=== PATIENT | female | born 1940 | race Caucasian/White ===

== ENCOUNTER 2017-09-10 15:07 | Outpatient (CLI) | payer MEDICARE, BC ==
[2017-09-10 14:44] LABS: BASOPHILS % (AUTO) 0.7 %; EOSINOPHILS # (AUTO) 0.2 10^3/uL (0.0-0.7); EOSINOPHILS % (AUTO) 2.7 %; HCT - HEMATOCRIT 38.3 % (37.0-47.0); LYMPHOCYTES # (AUTO) 1.8 10^3/uL (1.5-3.5); LYMPHOCYTES % (AUTO) 32.1 %; MEAN CORPUSCULAR HEMOGLOBIN 29.3 pg (27.0-31.0); MEAN CORPUSCULAR VOLUME 86.3 fL (81.0-99.0); MEAN PLATELET VOLUME 7.4 fL (7.9-10.8); MONOCYTES # (AUTO) 0.5 10^3/uL (0.0-1.0); MONOCYTES % (AUTO) 8.7 %; NEUTROPHILS # (AUTO) 3.2 10^3/uL (1.5-6.6); NEUTROPHILS % (AUTO) 55.8 %; RED BLOOD COUNT 4.44 10^6/uL (4.20-5.40); RED CELL DISTRIBUTION WIDTH 13.8 % (12.0-15.0); UNCORRECTED WHITE BLOOD COUNT 5.7 x10^3/uL; WHITE BLOOD COUNT 5.7 x10^3/uL (4.8-10.8)
[2017-09-10 15:31] LABS: ALBUMIN/GLOBULIN RATIO 1.4 (1.0-2.2); BILIRUBIN,TOTAL 0.9 mg/dL (0.2-1.0); BUN - BLOOD UREA NITROGEN 11 mg/dL (6-20); CALCIUM 9.3 mg/dL (8.5-10.3); CARBON DIOXIDE - CO2 27 mmol/L (21-32); CHLORIDE 95 mmol/L (101-111); CHOL/HDL RATIO 2.9 (<4.4); CHOLESTEROL 237 mg/dL; CREATININE 0.6 mg/dL (0.4-1.0); GFR - MDRD 97 (>89); GLUCOSE 90 mg/dL (70-100); HDL CHOLESTEROL 83 mg/dL; POTASSIUM 4.2 mmol/L (3.5-5.0); SODIUM 132 mmol/L (135-145); TOTAL PROTEIN 7.1 g/dL (6.7-8.2); TRIGLYCERIDES 38 mg/dL
[2017-09-10 15:42] LABS: BILIRUBIN,URINE NEGATIVE (NEGATIVE)
[2017-09-10 15:54] LABS: LDL CHOLESTEROL,DIRECT 149 mg/dL
[2017-09-10 15:59] LABS: UR CULTURE IF IND NOT INDICATED; WBC,URINE 0-3 /HPF (0-5)
== END 2017-09-10 15:08 | disposition home or self-care (01) ==
LOC: LAB 15:07
PROVIDERS: ATTEND Family Medicine
DX: I10 Essential (primary) hypertension (principal); R42 Dizziness and giddiness
CPT/HCPCS: 36415; 80053; 80061; 81001; 85025; 87086

== ENCOUNTER 2018-01-01 15:26 | Outpatient (CLI) | payer MEDICARE, BC ==
--- NOTE | 2018-01-01 23:05 | XRAY Report ---
EXAM: CERVICAL SPINE RADIOGRAPHY EXAM DATE: 01/01/2018 03:52 PM. HISTORY: Headache. Neck pain. Dizziness. COMPARISONS: CT 09/16/2016. TECHNIQUE: 7 views including bilateral obliques, flexion, and extension. FINDINGS: Alignment: No scoliosis. 2 mm C2-C3 anterolisthesis with flexion. Bones: The cervical vertebral bodies and posterior elements are well visualized from the skull base t hrough C7-T1. No fractures or bone lesions. Disks: Advanced disk space narrowing, C3 to C7, with bilateral C5-C6 and left C6-C7 foraminal narrowi ng. Facets: Multilevel facet arthropathy. Soft Tissues: Normal. No prevertebral soft tissue swelling. The visualized lung apices are clear. IMPRESSION: 1. 2 mm C2-C3 anterolisthesis with flexion. 2. Advanced degenerative disk disease, C3 to C7. [facility] Referring Provider Line: [phone] SITE ID: [id number]
== END 2018-01-01 15:27 | disposition home or self-care (01) ==
LOC: DI 15:26
PROVIDERS: ATTEND Family Medicine
DX: M50.31 Other cervical disc degeneration, high cervical region (principal); M43.12 Spondylolisthesis, cervical region
CPT/HCPCS: 72052

== ENCOUNTER 2018-02-18 10:48 | Outpatient (CLI) | payer MEDICARE, BC ==
[2018-02-18 11:44] LABS: BASOPHILS % (AUTO) 0.5 %; EOSINOPHILS # (AUTO) 0.2 10^3/uL (0.0-0.7); EOSINOPHILS % (AUTO) 3.8 %; HGB - HEMOGLOBIN 13.1 g/dL (12.0-16.0); LYMPHOCYTES # (AUTO) 1.7 10^3/uL (1.5-3.5); LYMPHOCYTES % (AUTO) 32.3 %; MEAN CORPUSCULAR HEMOGLOBIN 29.8 pg (27.0-31.0); MEAN CORPUSCULAR HGB CONC 33.8 g/dL (32.0-36.0); MEAN CORPUSCULAR VOLUME 88.3 fL (81.0-99.0); MEAN PLATELET VOLUME 7.4 fL (7.9-10.8); MONOCYTES # (AUTO) 0.5 10^3/uL (0.0-1.0); MONOCYTES % (AUTO) 9.7 %; NEUTROPHILS # (AUTO) 2.7 10^3/uL (1.5-6.6); NEUTROPHILS % (AUTO) 53.7 %; PLT - PLATELET COUNT 226 10^3/uL (130-450); RED BLOOD COUNT 4.39 10^6/uL (4.20-5.40); RED CELL DISTRIBUTION WIDTH 13.5 % (12.0-15.0); WHITE BLOOD COUNT 5.1 x10^3/uL (4.8-10.8)
[2018-02-18] MEDS ORDERED: REGADENOSON 0.4 MG/5 ML SYRINGE IVP ONE (12:04)
[2018-02-18 12:14] LABS: ALBUMIN/GLOBULIN RATIO 1.4 (1.0-2.2); ALKALINE PHOSPHATASE 67 IU/L (42-121); ALT ALANINE AMINOTRANSFERASE 28 IU/L (10-60); AST ASPARTATE AMINOTRANSFERASE 27 IU/L (10-42); BILIRUBIN,TOTAL 0.6 mg/dL (0.2-1.0); BUN - BLOOD UREA NITROGEN 15 mg/dL (6-20); CALCIUM 9.2 mg/dL (8.5-10.3); CARBON DIOXIDE - CO2 27 mmol/L (21-32); CHLORIDE 99 mmol/L (101-111); CHOL/HDL RATIO 2.8 (<4.4); CHOLESTEROL 203 mg/dL; CREATININE 0.4 mg/dL (0.4-1.0); GFR - MDRD 155 (>89); GLUCOSE 90 mg/dL (70-100); HDL CHOLESTEROL 73 mg/dL; LDL CHOLESTEROL,CALCULATED 115 mg/dL; LDL/HDL RATIO 1.6 (<4.4); SODIUM 133 mmol/L (135-145); TOTAL PROTEIN 6.8 g/dL (6.7-8.2); VLDL CHOLESTEROL 15 mg/dL
--- NOTE | 2018-02-18 15:44 | CARDIAC PROCEDURE NOTE ---
DATE OF SERVICE: 02/18/2018 Physician: ROGELIO Hood DATE OF SERVICE: 02/18/2018. PRIMARY CARE PROVIDER: Dr. Cristiane Mary. PROCEDURE: Pharmacologic cardiac stress test. PROCEDURE SYMPTOMS: Chest pain. CARDIAC RISK FACTORS: Age, hypertension, hyperlipidemia. PREVIOUS CARDIAC PROCEDURES: MPS. CLINICAL HISTORY: A 78-year-old female without known coronary artery disease. She is highly anxious. There were no medications held. INITIAL RESTING VITAL SIGNS: Blood pressure 166/90, heart rate 95, height 67 inches, weight 120 pounds. PROCEDURE AND FINDINGS: The patient identity and date verified. Consent signed. Pharmacologic stress testing was performed with Lexiscan at a dose of 0.4 mg over 10 seconds. The heart rate increased to 121 beats per minute from the infusion. Blood pressure response maria isabel to 184/76. The patient developed infusion-related symptoms, which include headache and required caffeine to resolve. The resting ECG demonstrated normal sinus rhythm with no ST or T-wave changes. Nondiagnostic Q-waves were present. Maximum ST segment depression with stress was 0. There was no ectopy. FINAL IMPRESSIONS: 1. Negative electrocardiogram for ischemia in the setting of vasodilator stress. 2. Nondiagnostic stress test for angina. 3. Good quality procedure. 4. Await myocardial perfusion report. TD: 02/18/2018 15:44
--- NOTE | 2018-02-19 08:16 | Nuclear Medicine Report ---
EXAM: SINGLE-ISOTOPE PHARMACOLOGICAL STRESS TEST WITH REGADENOSON. SINGLE-ISOTOPE AND ONE-DAY REST/STRESS M YOCARDIAL PERFUSION SCANS WITH TOMOGRAPHIC IMAGING, QUANTITATIVE ANALYSIS, WALL MOTION ANALYSIS AND C ALCULATION OF EJECTION FRACTION. EXAM DATE: 02/18/2018 04:52 PM. CLINICAL HISTORY: CHEST PAIN. COMPARISON: None available. TECHNIQUE: After the intravenous administration of 9.3 mCi of Tc-99m sestamibi, a rest myocardial perfusion scan was done with tomography. Motion correction was applied when appropriate. After an appropriate delay, pharmacological stress was performed with the infusion of 0.4 mg regadeno son per protocol. According to protocol, 40.7 mCi of Tc-99m sestamibi was injected for stress myocard ial perfusion scan. Motion correction was applied when appropriate. Gated tomographic images were obtained for wall motion analysis and computation of left ventricular e jection fraction. FINDINGS: No convincing fixed or reversible perfusion defects are evident. Wall motion analysis demonstrates no focal wall motion abnormality. The left ventricular end-diastolic volume is 40 cc. The left ventricular end-systolic volume is 3 cc. The left ventricular ejection fraction is calculated to be 92%. IMPRESSION: 1. No scintigraphic findings to indicate myocardial ischemia. Negative for infarct. 2. Left ventricular ejection fraction of >65%. 3. Normal segmental and global wall motion. 4. Normal left ventricular cavity size, no change with stress. [facility] Referring Provider Line: [phone] SITE ID: [id number]
--- NOTE | 2018-02-22 08:35 | XRAY Report ---
TWO VIEW CHEST: 02/18/2018 COMPARISON: Comparison study two view chest 03/30/2015. INDICATION: Centralized chest pain for a year. TECHNIQUE: Two views. FINDINGS: There is persistent right perihilar and bilateral apical infiltrates. Cannot exclude a right hilar or perihilar mass. No pneumothorax or pleural effusion. Mediastinum otherwise unremarkable. IMPRESSION: PERSISTENT RIGHT PERIHILAR OPACITY AND BIAPICAL SUBTLE INFILTRATES ARE UNCHANGED OVER THE COURSE OF ALMOST 3 YEARS. FAVOR THESE TO BE CHRONIC FINDINGS RATHER THAN RECURRENT ONES. A MASS IS NOT EXCLUDED, HOWEVER. RECOMMEND CHEST CT WITH CONTRAST FOR FURTHER EVALUATION. TD: 02/22/2018 08:34 RAPHAEL
[2018-02-22 16:23] VITALS: BP 166/90
== END 2018-02-18 10:49 | disposition home or self-care (01) ==
LOC: DI 10:48
PROVIDERS: ATTEND Family Medicine
DX: R07.9 Chest pain, unspecified (principal); E87.1 Hypo-osmolality and hyponatremia
CPT/HCPCS: 36415; 71046; 78452; 80053; 80061; 83930; 85025; 93017; A9500; J2785; 83721; 93016; 93018

== ENCOUNTER 2018-05-13 08:00 | Outpatient (CLI) | payer MEDICARE, BC | END 2018-05-13 08:01 | disposition home or self-care (01) | LOC: LAB.R 08:00 | PROVIDERS: ATTEND Internal Medicine Pulmonary Disease | DX: A31.9 Mycobacterial infection, unspecified (principal); C54.1 Malignant neoplasm of endometrium; J47.9 Bronchiectasis, uncomplicated; C50.919 Malignant neoplasm of unspecified site of unspecified female breast; M06.9 Rheumatoid arthritis, unspecified ==

== ENCOUNTER 2019-01-21 14:49 | Emergency (ER) | payer MEDICARE, BC ==
[2019-01-21 15:14] LABS: BILIRUBIN,URINE NEGATIVE (NEGATIVE); GLUCOSE, URINE (UA) NEGATIVE (NEGATIVE); KETONES,URINE (UA) NEGATIVE (NEGATIVE); LEUKOCYTE ESTERASE, URINE NEGATIVE (NEGATIVE); NITRITE,URINE NEGATIVE (NEGATIVE); OCCULT BLOOD,URINE NEGATIVE (NEGATIVE); PH,URINE 7.5 PH (5.0-7.5); PROTEIN,URINE NEGATIVE (NEGATIVE); UROBILINOGEN,URINE 0.2 (NORMAL) E.U./dL (NORMAL)
[2019-01-21 15:16] LABS: CLARITY,URINE CLEAR (CLEAR)
[2019-01-21 15:28] LABS: BASOPHILS % (AUTO) 0.1 %; HGB - HEMOGLOBIN 13.5 g/dL (12.0-16.0); LYMPHOCYTES # (AUTO) 1.7 10^3/uL (1.5-3.5); LYMPHOCYTES % (AUTO) 24.8 %; MEAN CORPUSCULAR HEMOGLOBIN 28.6 pg (27.0-31.0); MEAN CORPUSCULAR HGB CONC 33.3 g/dL (32.0-36.0); MEAN CORPUSCULAR VOLUME 85.7 fL (81.0-99.0); MEAN PLATELET VOLUME 7.2 fL (7.9-10.8); MONOCYTES # (AUTO) 0.5 10^3/uL (0.0-1.0); MONOCYTES % (AUTO) 7.2 %; NEUTROPHILS # (AUTO) 4.6 10^3/uL (1.5-6.6); NEUTROPHILS % (AUTO) 67.9 %; PLT - PLATELET COUNT 234 10^3/uL (130-450); RED BLOOD COUNT 4.74 10^6/uL (4.20-5.40); WHITE BLOOD COUNT 6.7 x10^3/uL (4.8-10.8)
[2019-01-21 15:45] LABS: ALBUMIN 4.2 g/dL (3.2-5.5); ALBUMIN/GLOBULIN RATIO 1.4 (1.0-2.2); BILIRUBIN,TOTAL 0.3 mg/dL (0.2-1.0); CALCIUM 9.3 mg/dL (8.5-10.3); CREATININE 0.4 mg/dL (0.4-1.0); TOTAL PROTEIN 7.2 g/dL (6.7-8.2)
--- NOTE | 2019-01-21 16:05 | ED Physician Documentation ---
PD HPI ABD PAIN - Stated complaint Stated Complaint: LOWER AB/R HIP/BACK PX - Chief complaint Chief Complaint: Abd Pain - History obtained from History obtained from: Patient - History of Present Illness Timing - onset: How many months ago (3) Timing - details: Gradual onset Quality: Pain Location: Other (lower abdomen, right > left.) Associated symptoms: Nausea. No: Fever, Vomiting, Dysuria - Additional information Additional information: The patient is a 78-year-old female with history of endometrial cancer, breast cancer, status post left mastectomy, and history of osteosarcoma, status post right above-knee amputation, who presents with lower abdominal pain, right greater than left, radiating to her right hip. The pain started 3 months ago and has been getting gradually worse, particularly over the past 2 days. She reports associated slight nausea. She denies vomiting. She denies fever, diarrhea, or dysuria. She is concerned about the possibility of recurrent cancer. Review of Systems Constitutional: denies: Fever Ears: denies: Tinnitus/ringing Nose: denies: Congestion Throat: denies: Sore throat Cardiac: denies: Chest pain / pressure Respiratory: reports: Cough. denies: Dyspnea GI: reports: Abdominal Pain, Nausea. denies: Vomiting, Diarrhea : denies: Dysuria Skin: denies: Rash Musculoskeletal: reports: Back pain (lower back), Joint pain (right hip) Neurologic: denies: Focal weakness, Numbness, Headache PD PAST MEDICAL HISTORY - Past Medical History Cardiovascular: Hypertension, High cholesterol, Valve disorder Respiratory: Asthma, COPD, Other SILK PRESSER: Breast cancer Psych: Anxiety, Panic attacks, Post traumatic stress disorder Musculoskeletal: Rheumatoid arthritis, Osteopenia, Other Other Past Medical History: Osteosarcoma, Breast cancer, Endometrial Cancer - Past Surgical History Past Surgical History: Yes General: Appendectomy Ortho: Amputation /SILK PRESSER: Hysterectomy - Present Medications Home Medications: Ambulatory Orders Medication Instructions Recorded Confirmed Anastrozole 1 mg ORAL DAILY 02/14/13 07/01/15 Azithromycin 500 mg ORAL DAILY 02/17/15 07/01/15 Acetaminophen with Codeine 07/01/15 07/01/15 [Tylenol with Codeine #4 Tablet] HYDROmorphone [Dilaudid] 2 mg PO Q6H PRN #10 tablet 07/01/15 Verapamil HCl [Verapamil ER] 07/01/15 07/01/15 Cyclobenzaprine [Flexeril] 10 mg PO TID PRN #10 tablet 09/16/16 Polyethylene Glycol 3350 [Miralax] 17 gm PO DAILY PRN #1 bottle 01/21/19 - Allergies Allergies/Adverse Reactions: Allergies Allergy/AdvReac Type Severity Reaction Status Date / Time hydrocodone [Hydrocodone] Allergy Unknown unknown Verified 01/21/19 14:58 oxycodone [Oxycodone] Allergy Unknown unknown Verified 01/21/19 14:58 Penicillins Allergy Unknown unknown Verified 01/21/19 14:58 adhesive Allergy Unknown Verified 01/21/19 14:59 - Social History Does the pt smoke?: No Smoking Status: Never smoker Does the pt drink ETOH?: No Does the pt have substance abuse?: No - Immunizations Immunizations are current?: Yes - POLST Patient has POLST: No PD ED PE NORMAL - Vitals Vital signs reviewed: Yes (systolic hypertension) - General General: Alert and oriented X 3, Well developed/nourished - HEENT HEENT: Atraumatic, Pharynx benign - Neck Neck: No adenopathy, No JVD - Cardiac Cardiac: RRR, No murmur - Respiratory Respiratory: No respiratory distress, Clear bilaterally - Abdomen Abdomen: Normal bowel sounds, Soft, Other (Mild diffuse tenderness to palpation across the lower abdomen, without focal tenderness or rebound.) - Back Back: No CVA TTP, No spinal TTP - Derm Derm: No rash - Extremities Extremities: No edema, No calf tenderness / cord, Other (Right above-knee amputation.) - Neuro Neuro: Alert and oriented X 3, No motor deficit, Normal speech Results - Vitals Vitals: Vital Signs - 24 hr 01/21/19 01/21/19 01/21/19 14:56 17:40 18:15 Temperature 36.7 C Heart Rate 81 68 65 Respiratory 18 18 17 Rate Blood Pressure 167/69 H 165/90 H O2 Saturation 99 99 98 Oxygen O2 Source Room air - Labs Labs: Laboratory Tests 01/21/19 01/21/19 01/21/19 15:05 15:18 15:18 WBC 6.7 RBC 4.74 Hgb 13.5 Hct 40.6 MCV 85.7 MCH 28.6 MCHC 33.3 RDW 14.0 Plt Count 234 MPV 7.2 L Neut # (Auto) 4.6 Lymph # (Auto) 1.7 [place] # (Auto) 0.5 Eos # (Auto) 0.0 Baso # (Auto) 0.0 Absolute Nucleated RBC 0.00 Nucleated RBC % 0.0 Sodium 129 L Potassium 4.6 Chloride 94 L Carbon Dioxide 28 Anion Gap 7.0 BUN 12 Creatinine 0.4 Estimated GFR (MDRD) 155 Glucose 101 H Calcium 9.3 Total Bilirubin 0.3 AST 22 ALT 20 Alkaline Phosphatase 65 Total Protein 7.2 Albumin 4.2 Globulin 3.0 Albumin/Globulin Ratio 1.4 Lipase 31 Urine Color YELLOW Urine Clarity CLEAR Urine pH 7.5 Ur Specific Curtis 1.010 Urine Protein NEGATIVE Urine Glucose (UA) NEGATIVE Urine Ketones NEGATIVE Urine Occult Blood NEGATIVE Urine Nitrite NEGATIVE Urine Bilirubin NEGATIVE Urine Urobilinogen 0.2 (NORMAL) Ur Leukocyte Esterase NEGATIVE Ur Microscopic Review NOT INDICATED Urine Culture Comments NOT INDICATED - Rads (name of study) CT abd/pelvis Radiology: Prelim report reviewed, EMP read contemporaneously, See rad report (1) Increased colonic stool. Possible, constipation without mechanical obstruction. 2) There are multiple low-density lesions within the liver which appear to represent cysts and measure mildly larger in size compared with 02/17/2015. 3) There is a right renal cyst which appears mildly larger in size. 4) There is an incidental 10 mm left lower lobe lung nodule. This is on the upper margin of the exam and uncertain if this finding is new or stable because of its location. In the setting of known malignancy, metastatic disease is not excluded.) PD MEDICAL DECISION MAKING - ED course Complexity details: reviewed old records, reviewed results, re-evaluated patient, considered differential, d/w patient ED course: The patient's abdominal pain is most likely related to her constipation. She also has history of reflex sympathetic dystrophy, which is likely an exacerbating factor, particularly with her back and right hip pain. CT scan of the abdomen and pelvis reveals no evidence of diverticulitis, appendicitis, or bowel obstruction. Her white count is normal at 6.7. Urinalysis is negative. Treatment in the emergency department included administration of morphine 5 mg IM. I discussed with her the results of the workup, outpatient treatment and follow-up, as well as potentially worrisome signs or symptoms that should prompt reevaluation in the emergency department. Departure - Departure Disposition: 01 Home, Self Care Clinical Impression: Reflex sympathetic dystrophy Abdominal pain Qualifiers: Abdominal location: lower abdomen, unspecified Qualified Code(s): R10.30 - Lower abdominal pain, unspecified Constipation Qualifiers: Constipation type: slow transit constipation Qualified Code(s): K59.01 - Slow transit constipation Condition: Stable Instructions: ED Abdominal Pain Unkn Cause, ED Constipation Follow-Up: Cristiane Mary MD [Provider Admit Priv/Credential] - Prescriptions: Polyethylene Glycol 3350 [Miralax] 17 gm PO DAILY PRN #1 bottle PRN Reason: Constipation Comments: You can use MiraLAX daily as prescribed. You can also use milk of magnesia, up to 30 mL daily as a gentle stool softener. If you want to try using CBD oil for your reflex sympathetic dystrophy pain, I see no harm in trying it. Follow-up with your primary physician within 2 weeks. Call to schedule an appointment. Return to the emergency department if you develop increasing pain, fever, persistent vomiting, or otherwise worsening symptoms.
[2019-01-21] MEDS ORDERED: IOVERSOL 320 100 ML VIAL IVP ONE ×2 (16:27→18:48)
--- NOTE | 2019-01-21 17:36 | CT Report ---
Reason: Lower abd. pain Procedure Date: 01/21/2019 Accession Number: [id number] / [id number] Procedure: CT - Abdomen/Pelvis W CPT Code: FULL RESULT: EXAM: CT ABDOMEN AND PELVIS EXAM DATE: 01/21/2019 05:12 PM. CLINICAL HISTORY: Lower abdomen pain. History of osteosarcoma and endometrial cancer COMPARISONS: ABDOMEN/PELVIS W/O 02/17/2015 7:39 PM. TECHNIQUE: Routine helical CT imaging was performed through the abdomen and pelvis. IV contrast: 100 cc Optiray 320 IV. Enteric contrast: No. Reconstructions: Coronal and sagittal. In accordance with CT protocol optimization, one or more of the following dose reduction techniques were utilized for this exam: automated exposure control, adjustment of mA and/or KV based on patient size, or use of iterative reconstructive technique. FINDINGS: Lung Bases: On the superiormost image there is a left lower lobe 10 mm nodule. There is a small focus of consolidation in the anterior left lower lobe. Liver: There are multiple round low-density lesions within the liver. There is a 20 mm lesion in segment 7 which previously measured 14 mm series 3 image 14. There is a segment 2 liver lesion measuring 13 mm which previously measured 10 mm. These lesions measure near water density. Gallbladder/Bile Ducts: Gallbladder appears partially contracted. Spleen: Normal. Pancreas: Normal. Adrenal Glands: Normal. Kidneys: There is an exophytic right renal cortical cyst measuring 46 mm previously 37 mm. No renal mass or hydronephrosis. Peritoneal Cavity/Bowel: There is increased colonic stool in the right colon. Small bowel is normal in caliber. No lymphadenopathy or mass. No abscess or free air. Pelvic Organs: Urinary bladder is empty. Uterus not visualized. Vasculature: There is moderate calcification of the aorta without aneurysm. Bones: There is asymmetric muscular atrophy of the right lower extremity. There is amputation of the right lower extremity at the upper femur diaphysis. No abnormal soft tissue gas collection. Other: None. IMPRESSION: 1. Increased colonic stool. Possible constipation without mechanical obstruction. 2. There are multiple low-density lesions within the liver which appear to represent cysts and measure mildly larger in size compared with 02/17/2015. 3. There is a right renal cyst which appears mildly larger in size. 4. There is an incidental 10 mm left lower lobe lung nodule. This is on the upper margin of the exam and uncertain if this finding is new or stable because of its location. In the setting of a known malignancy, metastatic disease is not excluded. [facility]
[2019-01-21] MEDS ORDERED: MORPHINE 2 MG/ML SYRINGE IVP STA (17:47)
[2019-01-21 18:35] VITALS: BP 140/69
== END 2019-01-21 18:35 | disposition home or self-care (01) ==
LOC: ED 14:49
DX: G90.50 Complex regional pain syndrome I, unspecified (principal); R10.30 Lower abdominal pain, unspecified; K59.01 Slow transit constipation; K76.9 Liver disease, unspecified; N28.1 Cyst of kidney, acquired; R91.1 Solitary pulmonary nodule; I10 Essential (primary) hypertension; E78.00 Pure hypercholesterolemia, unspecified; Z89.611 Acquired absence of right leg above knee; Z90.710 Acquired absence of both cervix and uterus; Z85.3 Personal history of malignant neoplasm of breast; Z85.89 Personal history of malignant neoplasm of other organs and systems; Z90.10 Acquired absence of unspecified breast and nipple; Z85.830 Personal history of malignant neoplasm of bone
CPT/HCPCS: 36415; 74177; 80053; 81003; 83690; 85025; 96374; 99283; 99284; J2270; Q9967; 81001; 87086

== ENCOUNTER 2019-02-07 15:32 | Outpatient (CLI) | payer MEDICARE, BC ==
[2019-02-07] MEDS ORDERED: GADOBUTROL 7.5 MMOL/7.5 ML VIAL ONE (15:45)
== END 2019-02-07 15:33 | disposition home or self-care (01) ==
LOC: DI 15:32
PROVIDERS: ATTEND Family Medicine
DX: Z53.9 Procedure and treatment not carried out, unspecified reason (principal)

== ENCOUNTER 2019-05-16 12:33 | Emergency (ER) | payer MEDICARE, BC ==
--- NOTE | 2019-05-16 13:05 | ED Physician Documentation ---
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 Patient states she has chronic back pain and she has had an MRI recently for this, which showed extensive degenerative disease. She can usually manage her back spasms at home, however yesterday she began having back pain which has not responded to Tylenol 3, or 2 mg of Dilaudid p.o. She denies fever, numbness, new weakness, dysuria. The pain is moderate at rest and severe with movement. twisting or palpating the area increased the pain. Review of Systems Constitutional: denies: Fever Cardiac: denies: Chest pain / pressure Respiratory: denies: Dyspnea Musculoskeletal: reports: Back pain Neurologic: denies: Focal weakness PD PAST MEDICAL HISTORY - Past Medical History Cardiovascular: Hypertension, High cholesterol, Valve disorder Respiratory: Asthma, COPD, Other BOBBIN CLEANER: Breast cancer Psych: Anxiety, Panic attacks, Post traumatic stress disorder Musculoskeletal: Rheumatoid arthritis, Osteopenia, Other - Past Surgical History Past Surgical History: Yes General: Appendectomy Ortho: Amputation /BOBBIN CLEANER: Hysterectomy - Present Medications Home Medications: Ambulatory Orders Medication Instructions Recorded Confirmed RX: Anastrozole 1 mg ORAL DAILY 02/14/13 07/01/15 RX: Azithromycin 500 mg ORAL DAILY 02/17/15 07/01/15 Acetaminophen with Codeine 07/01/15 07/01/15 [Tylenol with Codeine #4 Tablet] RX: HYDROmorphone [Dilaudid] 2 mg PO Q6H PRN #10 tablet 07/01/15 RX: Verapamil HCl [Verapamil ER] 07/01/15 07/01/15 Cyclobenzaprine [Flexeril] 10 mg PO TID PRN #10 tablet 09/16/16 Polyethylene Glycol 3350 [Miralax] 17 gm PO DAILY PRN #1 bottle 01/21/19 RX: Albuterol Sulf [Ventolin Hfa 1 - 2 puffs INH Q4HR PRN #1 inhaler 05/16/19 Inhaler] RX: Methocarbamol 500 mg PO TID PRN 4 Days #10 tablet 05/16/19 - Allergies Allergies/Adverse Reactions: Allergies Allergy/AdvReac Type Severity Reaction Status Date / Time hydrocodone [Hydrocodone] Allergy Unknown unknown Verified 05/16/19 12:42 oxycodone [Oxycodone] Allergy Unknown unknown Verified 05/16/19 12:42 Penicillins Allergy Unknown unknown Verified 05/16/19 12:42 adhesive Allergy Unknown Verified 05/16/19 12:42 - Social History Does the pt smoke?: No Smoking Status: Never smoker Does the pt drink ETOH?: No Does the pt have substance abuse?: No - Immunizations Immunizations are current?: Yes - POLST Patient has POLST: No PD ED PE NORMAL - Vitals Vital signs reviewed: Yes - General General: Alert and oriented X 3, No acute distress - Cardiac Cardiac: RRR, No murmur - Respiratory Respiratory: No respiratory distress - Abdomen Abdomen: Soft, Non tender, Non distended - Back Back: Other (Tenderness over the right paraspinous muscles and sacrum. Patient is able to flex and extend her back with some discomfort.) - Derm Derm: Warm and dry - Extremities Extremities: Other (AKA of right leg) - Neuro Neuro: Alert and oriented X 3, No motor deficit, No sensory deficit, Normal speech - Psych Psych: Normal mood, Normal affect Results - Vitals Vitals: Vital Signs - 24 hr 05/16/19 05/16/19 12:40 16:43 Temperature 36.8 C Heart Rate 90 78 Respiratory 16 19 Rate Blood Pressure 167/91 H 129/92 H O2 Saturation 97 99 Oxygen O2 Source Room air PD MEDICAL DECISION MAKING - ED course Complexity details: considered differential (Strain, sprain, fracture, sciatica, muscle spasm) ED course: Pt presents with a flare of chronic back pain. She has recently had imaging including an MRI and states that these symptoms have recurred identically many times in the past. She has no neurologic deficit or red flags that require repeat imaging today. She was given valium and toradol, afterwards she had some improvement in her pain and her spasming was less pronounced. She felt well enough to go home. I prescribed her methocarbamol for spasm, and recommended tylenol and a short course of NSAIDS as well. I refilled her albuterol inhaler at her request, as hers was . She has no respiratory symptoms at this time. She has no urinary symptoms and is tender in the muscles of her back, the pain does appear musculoskeletal. I discussed PCP follow up and return precautions and pt was discharged. Departure - Departure Disposition: 01 Home, Self Care Clinical Impression: Back pain Qualifiers: Back pain location: low back pain Chronicity: chronic Back pain laterality: right Sciatica presence: with sciatica Sciatica laterality: sciatica of right side Qualified Code(s): M54.41 - Lumbago with sciatica, right side Condition: Good Instructions: ED Chronic Pain Management Follow-Up: Cristiane Mary DO [Primary Care Provider] - Prescriptions: RX: Albuterol Sulf [Ventolin Hfa Inhaler] 1 - 2 puffs INH Q4HR PRN #1 inhaler PRN Reason: Shortness Of Air/Wheezing RX: Methocarbamol 500 mg PO TID PRN 4 Days #10 tablet PRN Reason: Pain Comments: You were seen today for a flareup of your back pain. Please follow-up with your primary care provider. If you have worsening symptoms, fever, numbness or weakness please return to the emergency department. Discharge Date/Time: 05/16/19 16:55
[2019-05-16] MEDS ORDERED: diazePAM INJ 5 MG/ML SYRINGE IVP ONE (13:26)
[2019-05-16] MEDS ORDERED: KETOROLAC 15 MG/ML VIAL IVP STA (13:26)
[2019-05-16] MEDS ORDERED: HALOPERIDOL 5 MG/ML VIAL IM STA (16:21)
[2019-05-16 16:44] VITALS: BP 129/92
== END 2019-05-16 16:55 | disposition home or self-care (01) ==
LOC: ED 12:33
DX: M54.41 Lumbago with sciatica, right side (principal); I10 Essential (primary) hypertension
CPT/HCPCS: 96372; 96374; 99284

== ENCOUNTER 2019-09-09 12:23 | Outpatient (CLI) | payer MEDICARE, BC ==
[2019-09-09 13:44] LABS: BILIRUBIN,URINE NEGATIVE (NEGATIVE); GLUCOSE, URINE (UA) NEGATIVE (NEGATIVE); KETONES,URINE (UA) NEGATIVE (NEGATIVE); LEUKOCYTE ESTERASE, URINE NEGATIVE (NEGATIVE); NITRITE,URINE NEGATIVE (NEGATIVE); OCCULT BLOOD,URINE NEGATIVE (NEGATIVE); PROTEIN,URINE NEGATIVE (NEGATIVE); UROBILINOGEN,URINE 0.2 (NORMAL) E.U./dL (NORMAL)
[2019-09-09 13:47] LABS: CLARITY,URINE CLEAR (CLEAR)
== END 2019-09-09 12:24 | disposition home or self-care (01) ==
LOC: DI 12:23
PROVIDERS: ATTEND Family Medicine
DX: R00.2 Palpitations (principal); R35.0 Frequency of micturition
CPT/HCPCS: 81001; 81003; 87086; 93306

== ENCOUNTER 2019-12-02 13:27 | Emergency (ER) | payer MEDICARE, BC ==
[2019-12-02 13:44] VITALS: BP 176/72
== END 2019-12-02 14:45 | disposition left against medical advice (07) ==
LOC: ED 13:27
DX: Z53.21 Procedure and treatment not carried out due to patient leaving prior to being seen by health care provider (principal)

== ENCOUNTER 2020-06-20 13:00 | Outpatient (CLI) | payer MEDICARE, BC | END 2020-06-20 23:59 | disposition home or self-care (01) | LOC: LAB.R 13:00 | PROVIDERS: ATTEND Family Medicine | DX: R06.02 Shortness of breath (principal); Z20.828 Contact with and (suspected) exposure to other viral communicable diseases ==

== ENCOUNTER 2020-07-04 13:07 | Outpatient (CLI) | payer MEDICARE, BC ==
[2020-07-04 13:53] LABS: BASOPHILS % (AUTO) 0.5 %; EOSINOPHILS # (AUTO) 0.1 10^3/uL (0.0-0.7); EOSINOPHILS % (AUTO) 1.5 %; HGB - HEMOGLOBIN 12.3 g/dL (12.0-16.0); LYMPHOCYTES # (AUTO) 1.4 10^3/uL (1.5-3.5); LYMPHOCYTES % (AUTO) 22.8 %; MEAN CORPUSCULAR HGB CONC 32.4 g/dL (32.0-36.0); MEAN CORPUSCULAR VOLUME 89.6 fL (81.0-99.0); MEAN PLATELET VOLUME 9.1 fL (7.9-10.8); MONOCYTES # (AUTO) 0.5 10^3/uL (0.0-1.0); MONOCYTES % (AUTO) 7.4 %; NEUTROPHILS # (AUTO) 4.2 10^3/uL (1.5-6.6); NEUTROPHILS % (AUTO) 67.6 %; PLT - PLATELET COUNT 265 10^3/uL (130-450); RED BLOOD COUNT 4.24 10^6/uL (4.20-5.40); RED CELL DISTRIBUTION WIDTH 13.4 % (12.0-15.0); WHITE BLOOD COUNT 6.2 x10^3/uL (4.8-10.8)
[2020-07-04 14:08] LABS: ALBUMIN 3.8 g/dL (3.2-5.5); ALBUMIN/GLOBULIN RATIO 1.1 (1.0-2.2); BILIRUBIN,TOTAL 0.6 mg/dL (0.2-1.0); CALCIUM 9.2 mg/dL (8.5-10.3); CREATININE 0.4 mg/dL (0.4-1.0); TOTAL PROTEIN 7.3 g/dL (6.7-8.2)
[2020-07-04 14:31] LABS: FERRITIN 48.3 ng/mL (11.0-306.8)
--- NOTE | 2020-07-04 18:03 | CT Report ---
PROCEDURE: CHEST WO INDICATIONS: BRONCHIECTASIS,SOB TECHNIQUE: Noncontrast 5 mm thick sections acquired from the pulmonary apices to the posterior costophrenic angl es. 7 mm thick coronal and sagittal MIP reformats were then acquired. For radiation dose reduction, the following was used: automated exposure control, adjustment of mA and/or kV according to patient size. COMPARISON: None available FINDINGS: Image quality: Excellent. Lungs and pleura: Superior segment bilateral lower lobe peripheral reticulonodular and tree-in-bud op acities are present. Reticular nodular pattern is also present anteriorly in the right upper lobe at a midlung level. Multiple thin-walled cysts are seen in both lower lobes towards the lung bases. Subp leural patchy opacities are present bilaterally at the lung apices. Scattered spiculated nodules are present occasionally throughout the lungs., Particularly centrally in the left lower lobe (4/218), an d on images 202 and 203 in the left lower lobe there is question of cavitation of nodules. There is traction bronchiectasis and fibrosis in the right middle lobe and lingula with consolidation s medially. There is peribronchial thickening in the right middle lobe to a mild degree. No pleural effusions or pleural calcifications. No acute air space opacities. No pleural effusions or pneumotho rax. Central and peripheral airways are patent and normal in caliber. Mediastinum: Heart size is normal. Small pericardial effusion. No mediastinal adenopathy by size cr iteria. Thoracic aorta and central pulmonary arteries are normal in size. Esophagus is normal in ca liber. No hiatal hernia. Bones and chest wall: There is a pectus excavatum deformity. Severe degenerative disc and endplate ch anges in the lower cervical and upper thoracic spine. No suspicious bony lesions. No vertebral body compression fractures. No axillary or supraclavicular adenopathy by size criteria. The thyroid is n ormal in size. Abdomen: Several hypodensities are scattered in the liver, likely cysts. Visualized upper abdominal solid organs and bowel loops appear otherwise normal in the absence of contrast. IMPRESSION: 1. Reticulonodular and tree-in-bud opacities bilaterally are most likely infectious or inflammatory, an infectious bronchiolitis. Their distribution also raises the possibility of aspiration. In the set ting of right middle lobe and lingular bronchiectasis and fibrosis, this suggests possible indolent M AI infection. Additionally, differential diagnosis includes fungal pneumonia or hypersensitivity pneu monitis. 2. Small pericardial effusion. Reviewed by: Demi Fuchs MD on 07/04/2020 5:02 PM [email or web address] Approved by: Demi Fuchs MD on 07/04/2020 5:02 PM TALISHA Station ID: [id number]
== END 2020-07-04 13:08 | disposition home or self-care (01) ==
LOC: DI 13:07
PROVIDERS: ATTEND Family Medicine
DX: J47.9 Bronchiectasis, uncomplicated (principal); Z20.828 Contact with and (suspected) exposure to other viral communicable diseases; R06.02 Shortness of breath; A31.9 Mycobacterial infection, unspecified; R53.83 Other fatigue; L65.9 Nonscarring hair loss, unspecified; I31.3 Pericardial effusion (noninflammatory)
CPT/HCPCS: 36415; 71250; 80053; 82728; 84443; 85025; U0004

== ENCOUNTER 2020-08-04 14:34 | Emergency (ER) | payer MEDICARE, BC ==
--- NOTE | 2020-08-04 14:49 | ED Physician Documentation ---
PD HPI CHEST PAIN - Stated complaint Stated Complaint: CHEST TIGHT - History obtained from History obtained from: Patient - History of Present Illness Timing - onset: How many weeks ago (1) Timing - onset during: Rest Timing - duration: Weeks Pain level max: 0 Pain level now: 0 Quality: Tightness Location: Other (across her chest) Radiation: No: Jaw, Neck, Back, Abdominal, Left upper extremity, Right upper extremity Improved by: Rest, Other (inhalers) Worsened by: Exertion Associated symptoms: Shortness of air. No: Diaphoresis, Nausea, Vomiting, Feeling faint / dizzy, General Weakness, Palpitations Recently seen: Not recently seen - Additional information Additional information: 80-year-old female with a history of Mycobacterium avium complex. She states that she has had chest tightness for the past week. No cough. No fevers. She states she is using her inhalers at home without relief. She has no cardiac hist ory. No stents. No bypasses. No heart attacks. Her fell and injured his shoulder recently, she brought him to the emergency department and decided to check into be evaluated as well. Review of Systems Ten Systems: 10 systems reviewed and negative Constitutional: denies: Fever, Chills Ears: denies: Ear pain Nose: denies: Rhinorrhea / runny nose, Congestion GI: denies: Vomiting, Constipation, Diarrhea Skin: denies: Rash Musculoskeletal: denies: Neck pain, Back pain Neurologic: denies: Headache PD PAST MEDICAL HISTORY - Past Medical History Cardiovascular: Hypertension, High cholesterol, Valve disorder Respiratory: Asthma, COPD, Other DOWEL POINTER: Breast cancer Psych: Anxiety, Panic attacks, Post traumatic stress disorder Musculoskeletal: Rheumatoid arthritis, Osteopenia, Other - Past Surgical History Past Surgical History: Yes General: Appendectomy Ortho: Amputation /DOWEL POINTER: Hysterectomy - Present Medications Home Medications: Ambulatory Orders Medication Instructions Recorded Confirmed Anastrozole 1 mg ORAL DAILY 02/14/13 07/01/15 Azithromycin 500 mg ORAL DAILY 02/17/15 07/01/15 Acetaminophen with Codeine 07/01/15 07/01/15 [Tylenol with Codeine #4 Tablet] HYDROmorphone [Dilaudid] 2 mg PO Q6H PRN #10 tablet 07/01/15 Verapamil HCl [Verapamil ER] 07/01/15 07/01/15 Cyclobenzaprine [Flexeril] 10 mg PO TID PRN #10 tablet 09/16/16 polyethylene glycoL 3350 [Miralax] 17 gm PO DAILY PRN #1 bottle 01/21/19 Albuterol Sulf [Ventolin Hfa 1 - 2 puffs INH Q4HR PRN #1 inhaler 05/16/19 Inhaler] methocarbamoL [Methocarbamol] 500 mg PO TID PRN 4 Days #10 tablet 05/16/19 Acetaminophen with Codeine 1 tab PO Q8H PRN #10 tablet 08/04/20 [Acetaminophen-Cod #3 Tablet] - Allergies Allergies/Adverse Reactions: Allergies Allergy/AdvReac Type Severity Reaction Status Date / Time hydrocodone [Hydrocodone] Allergy Unknown unknown Verified 08/04/20 14:45 oxycodone [Oxycodone] Allergy Unknown unknown Verified 08/04/20 14:45 Penicillins Allergy Unknown unknown Verified 08/04/20 14:45 adhesive Allergy Unknown Verified 08/04/20 14:45 - Social History Does the pt smoke?: No Smoking Status: Never smoker Does the pt drink ETOH?: No Does the pt have substance abuse?: No - Immunizations Immunizations are current?: Yes - POLST Patient has POLST: No PD ED PE NORMAL - General General: Alert and oriented X 3, Other (Very anxious appearing. Speaks rapidly and in full sentences) - HEENT HEENT: Moist mucous membranes - Neck Neck: Supple, no meningeal sign - Cardiac Cardiac: RRR - Respiratory Respiratory: No respiratory distress, Other (Diminished breath sounds bilaterally) - Abdomen Abdomen: Soft, Non tender, Non distended - Derm Derm: Warm and dry - Extremities Extremities: No edema, No calf tenderness / cord - Neuro Neuro: Alert and oriented X 3 - Psych Psych: Normal mood, Normal affect Results - Vitals Vitals: Vital Signs - 24 hr 08/04/20 08/04/20 08/04/20 14:45 15:34 16:00 Temperature 36.9 C Heart Rate 91 89 88 Respiratory 20 25 H 15 Rate Blood Pressure 174/92 H 166/76 H O2 Saturation 99 99 08/04/20 16:08 Temperature 37.2 C Heart Rate 86 Respiratory 20 Rate Blood Pressure 165/83 H O2 Saturation 100 Oxygen O2 Source Room air - EKG (time done) 1440 Rate: Rate (enter#) (100) Rhythm: Sinus tachycardia [place]: Normal Intervals: Normal [place] QRS: Normal Ischemia: Normal ST segments - Labs Labs: Laboratory Tests 08/04/20 08/04/20 08/04/20 14:44 14:44 14:44 WBC 7.4 RBC 4.02 L Hgb 11.6 L Hct 35.6 L MCV 88.6 MCH 28.9 MCHC 32.6 RDW 13.5 Plt Count 269 MPV 9.4 Neut # (Auto) 5.0 Lymph # (Auto) 1.7 [place] # (Auto) 0.6 Eos # (Auto) 0.0 Baso # (Auto) 0.0 Absolute Nucleated RBC 0.00 Nucleated RBC % 0.0 Sodium 134 L Potassium 4.2 Chloride 96 L Carbon Dioxide 27 Anion Gap 11.0 BUN 16 Creatinine 0.5 Estimated GFR (MDRD) 119 Glucose 103 H Calcium 9.2 Total Bilirubin 0.7 AST 24 ALT 22 Alkaline Phosphatase 68 Troponin I High Sens 3.3 Total Protein 7.3 Albumin 3.8 Globulin 3.5 Albumin/Globulin Ratio 1.1 Lipase 35 - Rads (name of study) chest x-ray Radiology: Prelim report reviewed, EMP read contemporaneously, See rad report (Chronic changes. No acute disease) PD MEDICAL DECISION MAKING - ED course Complexity details: reviewed old records, reviewed results, re-evaluated patient, considered differential (No ST elevation ND, no aortic dissection, no PE, no tension pneumothorax, no aortic aneurysm), d/w patient ED course: Patient is well-appearing, nontoxic. Afebrile. Negative high-sensitivity troponin after 1 week of symptoms. Does not appear consistent with cardiac at this time. Appears to be likely respiratory in nature. She was given albuterol treatments and prednisone here. She feels better. She states she can only take a single dose of prednisone, if she takes it longer than that she states she gets "very sick". Therefore we will have her continue her inhalers at home and follow-up closely with her doctor. No hypoxia. No respiratory distress. Speaking in full sentences without any difficulty. Patient counseled regarding signs and symptoms for which I believe and urgent re-evaluation would be necessary. Patient with good understanding of and agreement to plan and is comfortable going home at this time This document was made in part using voice recognition software. While efforts are made to proofread this document, sound alike and grammatical errors may occur. Patient also states that she developed back pain after she is in the emergency department and requests a refill of Tylenol No. 4. Tylenol for is not available to order in our system, therefore she was given a prescription for Tylenol 3. Departure - Departure Disposition: 01 Home, Self Care Clinical Impression: Dyspnea Qualifiers: Dyspnea type: unspecified Qualified Code(s): R06.00 - Dyspnea, unspecified Chest pain Qualifiers: Chest pain type: unspecified Qualified Code(s): R07.9 - Chest pain, unspecified Condition: Good Instructions: ED Chest Pain Atypical Unkn Cause, ED Dyspnea Shortness of Breath Follow-Up: Cristiane Mary DO [Primary Care Provider] - Within 3 Days Prescriptions: Acetaminophen with Codeine [Acetaminophen-Cod #3 Tablet] 1 tab PO Q8H PRN #10 tablet PRN Reason: back pain Comments: Continue your inhalers at home. Return if you worsen. Follow-up with your doctor for further care. Discharge Date/Time: 08/04/20 16:35
[2020-08-04 14:59] LABS: BASOPHILS % (AUTO) 0.5 %; EOSINOPHILS % (AUTO) 0.5 %; HGB - HEMOGLOBIN 11.6 g/dL (12.0-16.0); LYMPHOCYTES # (AUTO) 1.7 10^3/uL (1.5-3.5); LYMPHOCYTES % (AUTO) 23.2 %; MEAN CORPUSCULAR HEMOGLOBIN 28.9 pg (27.0-31.0); MEAN CORPUSCULAR HGB CONC 32.6 g/dL (32.0-36.0); MEAN CORPUSCULAR VOLUME 88.6 fL (81.0-99.0); MEAN PLATELET VOLUME 9.4 fL (7.9-10.8); MONOCYTES # (AUTO) 0.6 10^3/uL (0.0-1.0); MONOCYTES % (AUTO) 7.8 %; NEUTROPHILS % (AUTO) 67.6 %; PLT - PLATELET COUNT 269 10^3/uL (130-450); RED BLOOD COUNT 4.02 10^6/uL (4.20-5.40); RED CELL DISTRIBUTION WIDTH 13.5 % (12.0-15.0); WHITE BLOOD COUNT 7.4 x10^3/uL (4.8-10.8)
[2020-08-04 15:22] LABS: ALBUMIN 3.8 g/dL (3.2-5.5); ALBUMIN/GLOBULIN RATIO 1.1 (1.0-2.2); BILIRUBIN,TOTAL 0.7 mg/dL (0.2-1.0); CALCIUM 9.2 mg/dL (8.5-10.3); CREATININE 0.5 mg/dL (0.4-1.0); TOTAL PROTEIN 7.3 g/dL (6.7-8.2)
[2020-08-04] MEDS ORDERED: predniSONE 20 MG TABLET PO STA (15:36)
[2020-08-04] MEDS ORDERED: ALBUTEROL 1 PUFF INH STA (15:36)
--- NOTE | 2020-08-04 15:45 | XRAY Report ---
PROCEDURE: Chest 1 View X-Ray INDICATIONS: Chest Pain TECHNIQUE: One view of the chest was acquired. COMPARISON: 02/18/2018. Correlation is also made with the recent prior chest CT dated 07/04/2020. FINDINGS: Surgical changes and devices: None. Lungs and pleura: No pleural effusions or pneumothorax. No jennifer consolidative infiltrates are seen. This patient has underlying reticular nodular opacities, which are much better seen on the recent pr ior chest CT, which are likely stable. Mediastinum: Mediastinal contours appear normal. Heart size is normal. Bones and chest wall: No suspicious bony lesions. Age-appropriate degenerative changes are seen. O verlying soft tissues appear unremarkable. IMPRESSION: Nonspecific reticular nodular opacities, which are likely stable compared to the prior recent chest C T. Underlying infection is presumed, although differential diagnosis would also include hypersensitiv ity pneumonitis. Reviewed by: Rigo Franklin MD on 08/04/2020 2:44 PM AKDT Approved by: Rigo Franklin MD on 08/04/2020 2:44 PM AKDT Station ID: [id number]
[2020-08-04 16:10] VITALS: BP 165/83
== END 2020-08-04 16:35 | disposition home or self-care (01) ==
LOC: ED 14:34
DX: R07.89 Other chest pain (principal); R06.02 Shortness of breath; R00.0 Tachycardia, unspecified; Z20.828 Contact with and (suspected) exposure to other viral communicable diseases; M54.9 Dorsalgia, unspecified; I10 Essential (primary) hypertension
CPT/HCPCS: 36415; 71045; 80053; 83690; 84484; 85025; 93005; 94640; 99284; J7512; U0004

== ENCOUNTER 2020-11-07 08:00 | Outpatient (CLI) | payer MEDICARE, BC ==
[2020-11-07 12:37] LABS: ALBUMIN 4.1 g/dL (3.2-5.5); ALKALINE PHOSPHATASE 80 IU/L (42-121); ALT ALANINE AMINOTRANSFERASE 23 IU/L (10-60); AST ASPARTATE AMINOTRANSFERASE 25 IU/L (10-42); BILIRUBIN,TOTAL 0.6 mg/dL (0.2-1.0); BUN - BLOOD UREA NITROGEN 11 mg/dL (6-20); CALCIUM 9.5 mg/dL (8.5-10.3); CARBON DIOXIDE - CO2 27 mmol/L (21-32); CHLORIDE 94 mmol/L (101-111); CHOL/HDL RATIO 3.3 (<4.4); CHOLESTEROL 254 mg/dL; CREATININE 0.4 mg/dL (0.4-1.0); GLUCOSE 93 mg/dL (70-100); HDL CHOLESTEROL 77 mg/dL; TOTAL PROTEIN 7.2 g/dL (6.7-8.2)
[2020-11-07 12:38] LABS: BILIRUBIN,DIRECT < 0.1 mg/dL (0.1-0.5)
== END 2020-11-07 23:59 | disposition home or self-care (01) ==
LOC: LAB 08:00
PROVIDERS: ATTEND Internal Medicine Pulmonary Disease
DX: R07.9 Chest pain, unspecified (principal); A31.9 Mycobacterial infection, unspecified
CPT/HCPCS: 36415; 80048; 80061; 80076; 83721; 83880

== ENCOUNTER 2021-08-23 12:30 | Outpatient (CLI) | payer MEDICARE, BC ==
[2021-08-23 13:27] LABS: BASOPHILS % (AUTO) 0.7 %; EOSINOPHILS # (AUTO) 0.2 10^3/uL (0.0-0.7); HCT - HEMATOCRIT 39.6 % (37.0-47.0); HGB - HEMOGLOBIN 13.1 g/dL (12.0-16.0); LYMPHOCYTES # (AUTO) 1.6 10^3/uL (1.5-3.5); LYMPHOCYTES % (AUTO) 28.6 %; MEAN CORPUSCULAR HEMOGLOBIN 30.3 pg (27.0-31.0); MEAN CORPUSCULAR HGB CONC 33.1 g/dL (32.0-36.0); MEAN CORPUSCULAR VOLUME 91.5 fL (81.0-99.0); MEAN PLATELET VOLUME 9.4 fL (7.9-10.8); MONOCYTES # (AUTO) 0.5 10^3/uL (0.0-1.0); MONOCYTES % (AUTO) 8.7 %; NEUTROPHILS # (AUTO) 3.4 10^3/uL (1.5-6.6); NEUTROPHILS % (AUTO) 58.7 %; PLT - PLATELET COUNT 214 10^3/uL (130-450); RED BLOOD COUNT 4.33 10^6/uL (4.20-5.40); RED CELL DISTRIBUTION WIDTH 12.8 % (12.0-15.0); WHITE BLOOD COUNT 5.7 x10^3/uL (4.8-10.8)
[2021-08-23 13:45] LABS: ALBUMIN 4.3 g/dL (3.2-5.5); ALBUMIN/GLOBULIN RATIO 1.4 (1.0-2.2); ALKALINE PHOSPHATASE 76 IU/L (42-121); ALT ALANINE AMINOTRANSFERASE 20 IU/L (10-60); AST ASPARTATE AMINOTRANSFERASE 22 IU/L (10-42); BILIRUBIN,TOTAL 0.6 mg/dL (0.2-1.0); BUN - BLOOD UREA NITROGEN 14 mg/dL (6-20); CALCIUM 9.3 mg/dL (8.5-10.3); CARBON DIOXIDE - CO2 30 mmol/L (21-32); CHLORIDE 94 mmol/L (101-111); CREATININE 0.4 mg/dL (0.4-1.0); GFR - MDRD 154 (>89); GLUCOSE 101 mg/dL (70-100); POTASSIUM 4.9 mmol/L (3.5-5.0); SODIUM 133 mmol/L (135-145); TOTAL PROTEIN 7.3 g/dL (6.7-8.2)
[2021-08-23 14:20] LABS: CRP - C-REACTIVE PROTEIN < 1.0 mg/dL (0-1.0)
== END 2021-08-23 12:31 | disposition home or self-care (01) ==
LOC: LAB 12:30
PROVIDERS: ATTEND Internal Medicine Pulmonary Disease
DX: J47.9 Bronchiectasis, uncomplicated (principal); A31.9 Mycobacterial infection, unspecified; I10 Essential (primary) hypertension; R06.02 Shortness of breath
CPT/HCPCS: 36415; 80053; 85025; 86140; 87070; 87205

== ENCOUNTER 2021-12-23 12:34 | Outpatient (CLI) | payer MEDICARE, BC | END 2021-12-23 12:35 | disposition home or self-care (01) | LOC: LAB 12:34 | PROVIDERS: ATTEND Internal Medicine Pulmonary Disease | DX: Z01.812 Encounter for preprocedural laboratory examination (principal); Z20.822 Contact with and (suspected) exposure to COVID-19 ==

== ENCOUNTER 2022-02-11 12:43 | Outpatient (CLI) | payer MEDICARE, BC ==
[2022-02-11 12:51] LABS: BASOPHILS # (AUTO) 0.1 10^3/uL (0.0-0.1); BASOPHILS % (AUTO) 1.1 %; EOSINOPHILS # (AUTO) 0.2 10^3/uL (0.0-0.7); HCT - HEMATOCRIT 41.1 % (37.0-47.0); HGB - HEMOGLOBIN 13.5 g/dL (12.0-16.0); LYMPHOCYTES # (AUTO) 1.4 10^3/uL (1.5-3.5); LYMPHOCYTES % (AUTO) 30.3 %; MEAN CORPUSCULAR HEMOGLOBIN 29.7 pg (27.0-31.0); MEAN CORPUSCULAR HGB CONC 32.8 g/dL (32.0-36.0); MEAN CORPUSCULAR VOLUME 90.5 fL (81.0-99.0); MEAN PLATELET VOLUME 9.1 fL (7.9-10.8); MONOCYTES # (AUTO) 0.4 10^3/uL (0.0-1.0); MONOCYTES % (AUTO) 9.2 %; NEUTROPHILS # (AUTO) 2.5 10^3/uL (1.5-6.6); NEUTROPHILS % (AUTO) 54.2 %; PLT - PLATELET COUNT 257 10^3/uL (130-450); RED BLOOD COUNT 4.54 10^6/uL (4.20-5.40); RED CELL DISTRIBUTION WIDTH 13.2 % (12.0-15.0); WHITE BLOOD COUNT 4.6 x10^3/uL (4.8-10.8)
[2022-02-11 13:11] LABS: ALBUMIN 3.8 g/dL (3.2-5.5); ALBUMIN/GLOBULIN RATIO 1.2 (1.0-2.2); BILIRUBIN,TOTAL 0.4 mg/dL (0.2-1.0); CALCIUM 9.1 mg/dL (8.5-10.3); CREATININE 0.4 mg/dL (0.4-1.0); POTASSIUM 4.7 mmol/L (3.5-5.0); TOTAL PROTEIN 7.1 g/dL (6.7-8.2)
[2022-02-11 13:19] LABS: THYROID STIMULATING HORMONE 1.73 uIU/mL (0.34-5.60)
== END 2022-02-11 23:59 | disposition home or self-care (01) ==
LOC: LAB 12:43
PROVIDERS: ATTEND Family Medicine
DX: I10 Essential (primary) hypertension (principal); I47.1 Supraventricular tachycardia
CPT/HCPCS: 36415; 80053; 84443; 85025

== ENCOUNTER 2022-03-24 11:09 | Outpatient (CLI) | payer MEDICARE, BC | END 2022-03-24 11:10 | disposition home or self-care (01) | LOC: LAB 11:09 | DX: K86.2 Cyst of pancreas (principal); Z53.9 Procedure and treatment not carried out, unspecified reason | CPT/HCPCS: 82378; 86301 ==

== ENCOUNTER 2022-03-26 11:58 | Outpatient (CLI) | payer MEDICARE, BC ==
[2022-03-26 12:45] LABS: BASOPHILS # (AUTO) 0.1 10^3/uL (0.0-0.1); EOSINOPHILS # (AUTO) 0.1 10^3/uL (0.0-0.7); EOSINOPHILS % (AUTO) 2.9 %; HCT - HEMATOCRIT 38.9 % (37.0-47.0); HGB - HEMOGLOBIN 13.1 g/dL (12.0-16.0); LYMPHOCYTES # (AUTO) 1.3 10^3/uL (1.5-3.5); LYMPHOCYTES % (AUTO) 26.5 %; MEAN CORPUSCULAR HEMOGLOBIN 30.3 pg (27.0-31.0); MEAN CORPUSCULAR HGB CONC 33.7 g/dL (32.0-36.0); MEAN CORPUSCULAR VOLUME 89.8 fL (81.0-99.0); MEAN PLATELET VOLUME 9.4 fL (7.9-10.8); MONOCYTES # (AUTO) 0.4 10^3/uL (0.0-1.0); MONOCYTES % (AUTO) 8.4 %; PLT - PLATELET COUNT 217 10^3/uL (130-450); RED BLOOD COUNT 4.33 10^6/uL (4.20-5.40); RED CELL DISTRIBUTION WIDTH 13.2 % (12.0-15.0); WHITE BLOOD COUNT 4.9 x10^3/uL (4.8-10.8)
[2022-03-26 12:51] LABS: ALBUMIN 3.8 g/dL (3.2-5.5); ALBUMIN/GLOBULIN RATIO 1.3 (1.0-2.2); BILIRUBIN,TOTAL 0.5 mg/dL (0.2-1.0); CREATININE 0.4 mg/dL (0.4-1.0); POTASSIUM 4.8 mmol/L (3.5-5.0); TOTAL PROTEIN 6.8 g/dL (6.7-8.2)
== END 2022-03-26 11:59 | disposition home or self-care (01) ==
LOC: LAB 11:58
PROVIDERS: ATTEND Internal Medicine Cardiovascular Disease
DX: R06.02 Shortness of breath (principal)
CPT/HCPCS: 36415; 80053; 83880; 85025

== ENCOUNTER 2022-04-10 16:01 | Emergency (ER) | payer MEDICARE, BC ==
[2022-04-10] MEDS ORDERED: LORazepam 2 MG/ML VIAL IM STA (16:37)
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
--- NOTE | 2022-04-10 17:32 | XRAY Report ---
PROCEDURE: Hand 3 View LT INDICATIONS: hand pain 1st CMC TECHNIQUE: 3 views of the hand(s) acquired. COMPARISON: None FINDINGS: Bones: Osteopenia. The first carpometacarpal joint space narrowing, subchondral cysts and marginal os teophytes present. Atelectatic changes noted in the second through third PIP and third DIP. No osteol ytic lesion or fracture. Soft tissues: No suspicious soft tissue calcifications. IMPRESSION: Osteopenia without fracture or foreign body Osteoarthritis. Reviewed by: Jean Marie Gill MD on 04/10/2022 4:31 PM AKDT Approved by: Jean Marie Gill MD on 04/10/2022 4:31 PM AKDT Station ID: [id number]
--- NOTE | 2022-04-10 17:34 | CT Report ---
PROCEDURE: CHEST WO INDICATIONS: chest wall inj TECHNIQUE: Noncontrast 1mm axial images were acquired from the pulmonary apices to the posterior costophrenic an gles. Axial 5 mm soft tissue kernel reconstructions were performed as well as 8 mm axial MIP and cor onal and sagittal 5 mm reformations. For radiation dose reduction, the following was used: automate d exposure control, adjustment of mA and/or kV according to patient size. COMPARISON: 07/03/2020 FINDINGS: Image quality: Excellent. Lungs and pleura: Extensive changes of traction bronchiectasis and pulmonary fibrosis in the right m iddle lobe and lingula, unchanged. Extensive bilateral tree-in-bud opacities in the lower lobes and a pices bilaterally. Numerous ill-defined nodular densities are likely inflammatory or infectious in et iology. Slight interval curve progression of airspace densities in the left lung base. Cannot exclude superimposed patchy pneumonia. No pleural effusions or pneumothorax. Central and peripheral airways are patent and normal in caliber. Mediastinum: Heart size is normal. Chronic mild pericardial effusion. No mediastinal adenopathy by size criteria. Thoracic aorta and central pulmonary arteries are normal in size. Esophagus is reina l in caliber. No hiatal hernia. Bones and chest wall: No suspicious bony lesions. No vertebral body compression fractures. No axil mannie or supraclavicular adenopathy by size criteria. Thyroid is unremarkable. Abdomen: Visualized upper abdominal solid organs and bowel loops appear normal in the absence of con trast. IMPRESSION: 1. No evidence of displaced rib fracture or pneumothorax. 2. Extensive chronic findings in the lungs bilaterally, including pulmonary fibrosis and bronchiectas is and tree-in-bud opacities. 3. Cannot exclude superimposed patchy left basilar pneumonia. CLINICAL RECOMMENDATION STATEMENTS: In patients <35 years with an ITN detected on CT, MRI, or extrathyroidal ultrasound, the Committee re commends further evaluation with dedicated thyroid ultrasound if the nodule is "e1 cm and has no susp icious imaging features, and if the patient has normal life expectancy. In patients "e35 years with an ITN detected on CT, MRI, or extrathyroidal ultrasound, the Committee r ecommends further evaluation with dedicated thyroid ultrasound if the nodule is "e1.5 cm and has no s uspicious imaging features, and if the patient has normal life expectancy. (ACR, 2014) Reviewed by: Chris Soriano MD on 04/10/2022 5:33 PM PDT Approved by: Chris Soriano MD on 04/10/2022 5:33 PM PDT Station ID: [id number]
--- NOTE | 2022-04-10 17:40 | CT Report ---
PROCEDURE: LUMBAR SPINE WO INDICATIONS: back inj TECHNIQUE: Noncontrast 3 mm thick sections acquired from the T12 level to the sacrum. Sagittal and coronal refo rmats were constructed. For radiation dose reduction, the following was used: automated exposure co ntrol, adjustment of mA and/or kV according to patient size. COMPARISON: None. FINDINGS: Image quality: Excellent. Bones: Trace anterolisthesis of L5 on S1. Mild degenerative levocurvature scratch that mild levocurva ture of the lumbar spine. No acute vertebral body compression fractures. No suspicious lytic or sanjeev tic bony lesions. Central spinal caliber is of normal overall caliber. No pars defects. T11-T12: No canal stenosis or foraminal stenosis. T12-L1: No canal stenosis or foraminal stenosis. L1-L2: Mild facet hypertrophy. No canal stenosis or foraminal stenosis. L2-L3: Severe disc height loss. Posterior disc plus osteophyte. Facet hypertrophy. Moderate canal stenosis. Moderate right foraminal stenosis with mild flattening deformity on the exiting right L2 ne rve root. L3-L4: Moderate canal stenosis secondary to facet hypertrophy, ligament hypertrophy, and disc bulge . Mild to moderate bilateral foraminal stenosis. L4-L5: Severe multifactorial canal stenosis secondary to disc bulge, and facet and ligament hypertr ophy. Moderate left foraminal narrowing with flattening deformity on the exiting left L4 nerve root. L5-S1: Facet hypertrophy. Disc bulge. Mild canal stenosis. Mild to moderate foraminal stenosis and moderate left foraminal stenosis. There is flattening deformity on the exiting left L5 nerve root. Soft tissues: No retroperitoneal masses or hematomas. Visualized aorta is normal in caliber. IMPRESSION: 1. No evidence of acute fracture or dislocation involving the lumbar spine. 2. Extensive degenerative change. 3. Canal stenosis is moderate at L2-L3, moderate at L3-L4, severe at L4-L5, and mild at L5-S1. 4. Multilevel foraminal narrowing as described above. Reviewed by: Chris Soriano MD on 04/10/2022 5:39 PM PDT Approved by: Chris Soriano MD on 04/10/2022 5:39 PM PDT Station ID: [id number]
[2022-04-10] MEDS ORDERED: MORPHINE 2 MG/ML CARPUJECT IM STA (18:14)
[2022-04-10] MEDS ORDERED: KETOROLAC 30 MG/ML VIAL IM STA (18:14)
[2022-04-10] MEDS ORDERED: HYDROmorphone 1 MG/ML CARPUJECT IM STA (19:25)
[2022-04-10 20:08] VITALS: BP 168/84
== END 2022-04-10 21:00 | disposition home or self-care (01) ==
LOC: ED 16:01
DX: S20.219A Contusion of unspecified front wall of thorax, initial encounter (principal); S39.92XA Unspecified injury of lower back, initial encounter; W17.89XA Other fall from one level to another, initial encounter; Z91.81 History of falling; I10 Essential (primary) hypertension; J18.9 Pneumonia, unspecified organism
CPT/HCPCS: 71250; 72131; 73130; 87070; 87077; 87181; 87205; 96372; 99284; 99285; J1170; J2060; 82378; 86301

== ENCOUNTER 2022-04-10 17:03 | Outpatient (CLI) | payer MEDICARE, BC | END 2022-04-10 17:04 | disposition home or self-care (01) | LOC: LAB 17:03 | DX: Z53.9 Procedure and treatment not carried out, unspecified reason (principal) | CPT/HCPCS: 82378; 86301 ==

== ENCOUNTER 2022-05-06 12:32 | Outpatient (CLI) | payer MEDICARE, BC ==
[2022-05-06 12:52] LABS: BASOPHILS # (AUTO) 0.1 10^3/uL (0.0-0.1); EOSINOPHILS # (AUTO) 0.1 10^3/uL (0.0-0.7); EOSINOPHILS % (AUTO) 1.6 %; HCT - HEMATOCRIT 40.6 % (37.0-47.0); HGB - HEMOGLOBIN 13.9 g/dL (12.0-16.0); LYMPHOCYTES # (AUTO) 1.2 10^3/uL (1.5-3.5); LYMPHOCYTES % (AUTO) 24.8 %; MEAN CORPUSCULAR HEMOGLOBIN 30.3 pg (27.0-31.0); MEAN CORPUSCULAR HGB CONC 34.2 g/dL (32.0-36.0); MEAN CORPUSCULAR VOLUME 88.6 fL (81.0-99.0); MEAN PLATELET VOLUME 9.2 fL (7.9-10.8); MONOCYTES # (AUTO) 0.5 10^3/uL (0.0-1.0); MONOCYTES % (AUTO) 9.2 %; NEUTROPHILS # (AUTO) 3.2 10^3/uL (1.5-6.6); NEUTROPHILS % (AUTO) 63.2 %; PLT - PLATELET COUNT 246 10^3/uL (130-450); RED BLOOD COUNT 4.58 10^6/uL (4.20-5.40)
[2022-05-06 13:10] LABS: ALBUMIN 4.1 g/dL (3.2-5.5); ALBUMIN/GLOBULIN RATIO 1.2 (1.0-2.2); ALKALINE PHOSPHATASE 83 IU/L (42-121); ALT ALANINE AMINOTRANSFERASE 22 IU/L (10-60); AST ASPARTATE AMINOTRANSFERASE 24 IU/L (10-42); BILIRUBIN,TOTAL 0.7 mg/dL (0.2-1.0); BUN - BLOOD UREA NITROGEN 10 mg/dL (6-20); CALCIUM 9.6 mg/dL (8.5-10.3); CARBON DIOXIDE - CO2 30 mmol/L (21-32); CHLORIDE 90 mmol/L (101-111); CHOL/HDL RATIO 3.2 (<4.4); CHOLESTEROL 265 mg/dL; CREATININE 0.5 mg/dL (0.4-1.0); GFR - MDRD 119 (>89); GLUCOSE 110 mg/dL (70-100); HDL CHOLESTEROL 84 mg/dL; POTASSIUM 4.6 mmol/L (3.5-5.0); SODIUM 130 mmol/L (135-145); TOTAL PROTEIN 7.4 g/dL (6.7-8.2); TRIGLYCERIDES 31 mg/dL
[2022-05-06 13:21] LABS: THYROID STIMULATING HORMONE 2.04 uIU/mL (0.34-5.60)
== END 2022-05-06 12:33 | disposition home or self-care (01) ==
LOC: LAB 12:32
DX: I10 Essential (primary) hypertension (principal); R63.4 Abnormal weight loss; K86.2 Cyst of pancreas
CPT/HCPCS: 36415; 80053; 80061; 82378; 83721; 84443; 85025; 86301

== ENCOUNTER 2022-07-11 11:34 | Outpatient (CLI) | payer MEDICARE, BC ==
[2022-07-11] MEDS ORDERED: DIATRIZOATE MEGLU/DIATRIZO SOD 30 ML BOTTLE PO ONE ×2 (12:12→13:49)
--- NOTE | 2022-07-11 16:32 | CT Report ---
PROCEDURE: CHEST W INDICATIONS: HX OF ENDOMETRIUM CANCER CONTRAST: IV CONTRAST: Optiray 320 ml: 100 PO CONTRAST: Redi-Cat ml30 TECHNIQUE: After the administration of intravenous contrast, 1 mm axial images were acquired from the pulmonary apices through the posterior costophrenic angles. Axial 5 mm soft tissue kernel reconstructions were performed as well as 8 mm axial MIP and coronal and sagittal 5 mm reformations. For radiation dose reduction, the following was used: automated exposure control, adjustment of mA and/or kV according to patient size. COMPARISON: CT chest 04/10/2022 FINDINGS: Image quality: Excellent. Lungs and pleura: Bilateral appearance of prominent bronchial wall thickening and bronchiectasis are identified. Fibrotic like changes remain present most severe in the lingula and right middle lobe. Th ere are prominent areas of nodularity within the lungs bilaterally most significant in the left lower lobe demonstrating predominantly a tree-in-bud pattern. However, on current exam, nodules appear mor e numerous and confluent particularly in the lateral left lower lobe. Mediastinum: Heart size is normal. No pericardial effusion. No mediastinal or hilar adenopathy by size criteria. Thoracic aorta and central pulmonary arteries are normal in size. Esophagus is reina l in caliber. No hiatal hernia. Bones and chest wall: No suspicious bony lesions. No vertebral body compression fractures. No axil mannie or supraclavicular adenopathy by size criteria. The thyroid is normal in size and there are no incidental findings.. Abdomen: Simple hepatic and renal cysts are noted. Otherwise, visualized upper abdominal solid organ s appear normal. Upper abdominal bowel loops are normal in caliber. IMPRESSION: Interval worsening of bilateral pulmonary nodules most severe now in the left lower lobe. Appearance is most suggestive of interval worsening of underlying previous identified infection which can includ e atypical infection such as fungal or mycobacterial with possible superimposed acute/subacute infect ion. Given history of malignancy,, areas of nodularity which have developed since prior exam could al so represent metastatic disease. CLINICAL RECOMMENDATION STATEMENTS: In patients <35 years with an ITN detected on CT, MRI, or extrathyroidal ultrasound, the Committee re commends further evaluation with dedicated thyroid ultrasound if the nodule is "e1 cm and has no susp icious imaging features, and if the patient has normal life expectancy. In patients "e35 years with an ITN detected on CT, MRI, or extrathyroidal ultrasound, the Committee r ecommends further evaluation with dedicated thyroid ultrasound if the nodule is "e1.5 cm and has no s uspicious imaging features, and if the patient has normal life expectancy. (ACR, 2014) Reviewed by: Madiha Huffman MD on 07/11/2022 4:31 PM PDT Approved by: Madiha Huffman MD on 07/11/2022 4:31 PM PDT Station ID: [id number]
--- NOTE | 2022-07-11 16:38 | CT Report ---
PROCEDURE: Abdomen/Pelvis W INDICATIONS: HX OF ENDOMETRIUM CANCER CONTRAST: IV CONTRAST: Optiray 320 ml: 100 PO CONTRAST: Redi-Cat ml30 TECHNIQUE: After the administration of oral and IV contrast, 5 mm thick sections acquired from the diaphragms to the symphysis. 5 mm thick coronal and sagittal reformats were acquired. For radiation dose reducti on, the following was used: automated exposure control, adjustment of mA and/or kV according to lianne ent size. COMPARISON: CT abdomen pelvis 01/21/2019 FINDINGS: Image quality: There is limited visualization of the pelvis secondary to artifact from hip arthropla sty. ABDOMEN: Lung bases: Multiple areas of bronchiectasis as well as nodularity are present within the visualized lungs. Please see CT chest report of 07/11/2022 for further details. Heart size is normal. Solid organs: Liver and spleen are normal in size. Scattered low-attenuation hepatic foci are presen t, unchanged and most consistent with simple cysts. Gallbladder is unremarkable. Biliary system is n on dilated. Pancreas enhances normally. No adrenal nodules. Kidneys demonstrate normal size and en hancement, without hydronephrosis. Peritoneum and bowel: Bowel loops demonstrate normal wall thickness and caliber. Significant colonic stool is present. No free fluid or air. Nodes and vessels: No retroperitoneal or mesenteric adenopathy by size criteria. Aorta and inferior vena cava are normal in size. Miscellaneous: No ventral hernias. PELVIS: Genitourinary: Bladder wall thickness is normal. Miscellaneous: No inguinal hernias or adenopathy. Bones: No suspicious bony lesions. No vertebral body compression fractures. IMPRESSION: Interval progression of pulmonary findings as above. Please see CT chest report of 07/11/2022 for furt her details. Abdomen and pelvis demonstrate stable appearance without visualized recurrent/residual disease. Reviewed by: Madiha Huffman MD on 07/11/2022 4:36 PM PDT Approved by: Madiha Huffman MD on 07/11/2022 4:36 PM PDT Station ID: [id number]
--- NOTE | 2022-07-11 16:59 | CT Report ---
PROCEDURE: SOFT TISSUE NECK W INDICATIONS: BREAST CANCER CONTRAST: IV CONTRAST: Optiray 320 ml: 100 PO CONTRAST: Redi-Cat ml30 TECHNIQUE: After the administration of intravenous contrast, 3.0 mm axial sections acquired from the sella to th e aortic arch. Additional oblique axial 3.0 mm sections acquired through the pharynx. 3 mm thick co amairani reformats were generated. For radiation dose reduction, the following was used: automated exp osure control, adjustment of mA and/or kV according to patient size. COMPARISON: Correlation is made with the accompanying abdomen pelvis CT and chest CT, 07/11/2020. Cor relation is also made with the prior cervical spine CT, 09/16/2016. Correlation is made with prior [facility] st CT examination 07/04/2020. FINDINGS: Image quality: Excellent. Lymph nodes: No enlarged lymph nodes seen throughout the neck. Vessels: Visualized vasculature appears patent. Neck spaces: The oropharynx, nasopharynx, and pharynx demonstrate no mucosal lesions. The vocal cor ds, false vocal cords, pyriform sinuses, epiglottis, vallecula, and tongue base all appear normal. E xtramucosal spaces appear unremarkable. Glands: The parotid and submandibular glands appear normal. The thyroid is normal in size and there are no incidental findings. Miscellaneous: Visualized brain and orbits appear normal. Superficial soft tissues appear normal. W ithin the pulmonary apices, scattered soft tissue nodules are seen. The largest is seen on the left, as on series 2 image 122 measuring up to 6 mm. Bones: No suspicious bony lesions. Visualized sinuses and mastoids appear unremarkable. At least m oderate cervical spine degenerative changes are seen. IMPRESSION: Scattered soft tissue nodules are seen at the lung apices that measure up to 6 mm. These are overall slightly improved compared to the 04/10/2022 examination. No mucosal masses are seen. No soft tissue masses are seen. No enlarged lymph nodes are seen. There is at least moderate cervical spine degenerative change. Reviewed by: Rigo Franklin MD on 07/11/2022 3:57 PM AKKRUNAL Approved by: Rigo Franklin MD on 07/11/2022 3:57 PM AKKRUNAL Station ID: [id number]
== END 2022-07-11 11:35 | disposition home or self-care (01) ==
LOC: MAC.MOP 11:34
PROVIDERS: ATTEND Internal Medicine Hematology & Oncology
DX: R63.4 Abnormal weight loss (principal); R53.1 Weakness; R53.83 Other fatigue; I50.9 Heart failure, unspecified; J44.9 Chronic obstructive pulmonary disease, unspecified; R07.0 Pain in throat; G47.9 Sleep disorder, unspecified; A31.0 Pulmonary mycobacterial infection; Z85.3 Personal history of malignant neoplasm of breast; Z85.830 Personal history of malignant neoplasm of bone; Z85.44 Personal history of malignant neoplasm of other female genital organs; Z92.29 Personal history of other drug therapy; Z89.611 Acquired absence of right leg above knee; Z90.710 Acquired absence of both cervix and uterus; R91.8 Other nonspecific abnormal finding of lung field
CPT/HCPCS: 70491; 71260; 74177; Q9963; Q9967

== ENCOUNTER 2022-08-18 08:00 | Outpatient (CLI) | payer MEDICARE, BC ==
[2022-08-18 15:05] LABS: BASOPHILS % (AUTO) 0.6 %; EOSINOPHILS # (AUTO) 0.1 10^3/uL (0.0-0.7); EOSINOPHILS % (AUTO) 1.6 %; HCT - HEMATOCRIT 37.5 % (37.0-47.0); HGB - HEMOGLOBIN 12.4 g/dL (12.0-16.0); LYMPHOCYTES # (AUTO) 1.7 10^3/uL (1.5-3.5); LYMPHOCYTES % (AUTO) 24.6 %; MEAN CORPUSCULAR HEMOGLOBIN 29.8 pg (27.0-31.0); MEAN CORPUSCULAR HGB CONC 33.1 g/dL (32.0-36.0); MEAN CORPUSCULAR VOLUME 90.1 fL (81.0-99.0); MEAN PLATELET VOLUME 9.4 fL (7.9-10.8); MONOCYTES # (AUTO) 0.5 10^3/uL (0.0-1.0); MONOCYTES % (AUTO) 7.5 %; NEUTROPHILS # (AUTO) 4.6 10^3/uL (1.5-6.6); NEUTROPHILS % (AUTO) 65.6 %; PLT - PLATELET COUNT 257 10^3/uL (130-450); RED BLOOD COUNT 4.16 10^6/uL (4.20-5.40); RED CELL DISTRIBUTION WIDTH 13.2 % (12.0-15.0)
[2022-08-18 15:29] LABS: ALBUMIN 3.7 g/dL (3.2-5.5); ALKALINE PHOSPHATASE 92 IU/L (42-121); ALT ALANINE AMINOTRANSFERASE 21 IU/L (10-60); AMYLASE 105 U/L (28-100); AST ASPARTATE AMINOTRANSFERASE 24 IU/L (10-42); BILIRUBIN,TOTAL 0.5 mg/dL (0.2-1.0); BUN - BLOOD UREA NITROGEN 10 mg/dL (6-20); CALCIUM 8.9 mg/dL (8.5-10.3); CARBON DIOXIDE - CO2 30 mmol/L (21-32); CHLORIDE 95 mmol/L (101-111); CHOL/HDL RATIO 2.9 (<4.4); CHOLESTEROL 245 mg/dL; CREATININE 0.3 mg/dL (0.4-1.0); CRP - C-REACTIVE PROTEIN 1.6 mg/dL (0-1.0); GAMMA GLUTAMYL TRANSPEPTIDASE 15 IU/L (8-38); GFR - MDRD 214 (>89); GLUCOSE 89 mg/dL (70-100); HDL CHOLESTEROL 84 mg/dL; LDL CHOLESTEROL,CALCULATED 152 mg/dL; LDL/HDL RATIO 1.8 (<4.4); LIPASE 33 U/L (22-51); POTASSIUM 3.9 mmol/L (3.5-5.0); SODIUM 129 mmol/L (135-145); TOTAL PROTEIN 7.3 g/dL (6.7-8.2); TRIGLYCERIDES 45 mg/dL; VLDL CHOLESTEROL 9 mg/dL
[2022-08-18 15:37] LABS: THYROID STIMULATING HORMONE 2.15 uIU/mL (0.34-5.60)
[2022-08-18 15:39] LABS: FREE T4 (FREE THYROXINE) 0.86 ng/dL (0.58-1.64)
[2022-08-18 20:19] LABS: ESTIMATED AVERAGE GLUCOSE 120 mg/dL (70-100); HEMOGLOBIN A1c% 5.8 % (4.27-6.07)
[2022-08-20 15:09] LABS: OSMOLALITY 273 mOsmol/kg (280-301)
[2022-08-21 12:09] LABS: OSMOLALITY URINE 283 mOsmol/kg (.)
== END 2022-08-18 23:59 | disposition home or self-care (01) ==
LOC: LAB 08:00
PROVIDERS: ATTEND Internal Medicine
DX: K86.9 Disease of pancreas, unspecified (principal); R63.4 Abnormal weight loss; Z13.220 Encounter for screening for lipoid disorders; E87.1 Hypo-osmolality and hyponatremia
CPT/HCPCS: 36415; 80053; 80061; 81599; 82150; 82172; 82533; 82570; 82977; 83036; 83690; 83721; 83930; 83935; 84300; 84439; 84443; 85025; 85651; 86140

== ENCOUNTER 2023-02-16 13:08 | Outpatient (CLI) | payer MEDICARE, BC ==
[2023-02-16 13:25] LABS: HCT - HEMATOCRIT 40.5 % (37.0-47.0); HGB - HEMOGLOBIN 13.1 g/dL (12.0-16.0); LYMPHOCYTES # (AUTO) 1.7 10^3/uL (1.5-3.5); MEAN CORPUSCULAR HEMOGLOBIN 28.4 pg (27.0-31.0); MEAN CORPUSCULAR HGB CONC 32.3 g/dL (32.0-36.0); MEAN CORPUSCULAR VOLUME 87.7 fL (81.0-99.0); MEAN PLATELET VOLUME 9.1 fL (7.9-10.8); MONOCYTES # (AUTO) 0.5 10^3/uL (0.0-1.0); MONOCYTES % (AUTO) 7.2 %; NEUTROPHILS # (AUTO) 4.5 10^3/uL (1.5-6.6); NEUTROPHILS % (AUTO) 67.7 %; PLT - PLATELET COUNT 269 10^3/uL (130-450); RED BLOOD COUNT 4.62 10^6/uL (4.20-5.40); RED CELL DISTRIBUTION WIDTH 13.8 % (12.0-15.0); WHITE BLOOD COUNT 6.7 x10^3/uL (4.8-10.8)
[2023-02-16 13:50] LABS: ALBUMIN 3.5 g/dL (3.2-5.5); ALBUMIN/GLOBULIN RATIO 0.9 (1.0-2.2); ALKALINE PHOSPHATASE 70 IU/L (42-121); ALT ALANINE AMINOTRANSFERASE 18 IU/L (10-60); AST ASPARTATE AMINOTRANSFERASE 20 IU/L (10-42); BILIRUBIN,TOTAL 0.5 mg/dL (0.2-1.0); BUN - BLOOD UREA NITROGEN 15 mg/dL (6-20); CALCIUM 8.8 mg/dL (8.5-10.3); CARBON DIOXIDE - CO2 29 mmol/L (21-32); CHLORIDE 96 mmol/L (101-111); CREATININE 0.5 mg/dL (0.4-1.0); GFR - MDRD 118 (>89); GLUCOSE 104 mg/dL (70-100); POTASSIUM 4.8 mmol/L (3.5-5.0); SODIUM 134 mmol/L (135-145); TOTAL PROTEIN 7.4 g/dL (6.7-8.2)
[2023-02-16 13:56] LABS: THYROID STIMULATING HORMONE 1.8 uIU/mL (0.34-5.60)
[2023-02-16 13:58] LABS: FREE T4 (FREE THYROXINE) 1.04 ng/dL (0.58-1.64)
[2023-02-16 14:26] LABS: BILIRUBIN,DIRECT < 0.1 mg/dL (0.1-0.5)
== END 2023-02-16 13:09 | disposition home or self-care (01) ==
LOC: LAB 13:08
PROVIDERS: ATTEND Internal Medicine Cardiovascular Disease
DX: I10 Essential (primary) hypertension (principal); R06.00 Dyspnea, unspecified
CPT/HCPCS: 36415; 80053; 82248; 83880; 84439; 84443; 85025

== ENCOUNTER 2023-02-19 15:12 | Outpatient (CLI) | payer MEDICARE, BC | END 2023-02-19 15:13 | disposition home or self-care (01) | LOC: DI 15:12 | PROVIDERS: ATTEND Internal Medicine Cardiovascular Disease | DX: R06.09 Other forms of dyspnea (principal); R53.83 Other fatigue | CPT/HCPCS: 93306 ==

== ENCOUNTER 2023-02-23 18:17 | Emergency (ER) | payer MEDICARE, BC ==
--- NOTE | 2023-02-23 21:04 | ED Physician Documentation ---
History of Present Illness - Stated complaint Stated Complaint: BACK & LEG PAIN - Chief complaint Chief Complaint: General - History obtained from History obtained from: Patient - Additonal information Additional information: Patient is a challenging, difficult historian. Per the ED public employment mediator note/information, patient's chief complaint is exacerbation of chronic left leg pain. On my HPI, patient speaks in particularly long, run-on sentences with markedly tangential information. 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 Throughout the HPI/ROS, she only stops talking if I interrupt her. She makes it clear that she is aggravated that I am interrupting her; she says she feels I am interrupting vital information relevant to the ED presentation, but mostly goes on to provide information that is, at best, tangential and of minim al use to the situation from an emergency perspective. She briefly answers the questions I asked, before returning to a long narrative that has less and less to do with her current ER presentation, such as previous surgeries which she feels involved mistakes made by the surgeon. Review of Systems Constitutional: denies: Fever Cardiac: reports: Chest pain / pressure (insists she has "pain everywhere", including when I wask about chest pain) GI: reports: Abdominal Pain (insists she has "Pain everywhere", including when I ask about her abdomen) Musculoskeletal: reports: Neck pain, Back pain, Extremity pain, Joint pain, Extremity swelling, Joint swelling, Other (insists she has "pain everwhere", including when I ask about neck, back, arms, legs) Neurologic: reports: Headache ("pain everwhere", including headache) PD PAST MEDICAL HISTORY - Past Medical History Cardiovascular: Hypertension, High cholesterol, Valve disorder Respiratory: Asthma, COPD, Other Neuro: Peripheral neuropathy Endocrine/Autoimmune: HyPOthyroidism TELEVISION STATION MANAGER: Breast cancer HEENT: None Psych: Anxiety, Panic attacks, Post traumatic stress disorder Musculoskeletal: Rheumatoid arthritis, Osteopenia, Other - Past Surgical History Past Surgical History: Yes General: Appendectomy Ortho: Amputation /TELEVISION STATION MANAGER: Hysterectomy - Present Medications Home Medications: Ambulatory Orders Medication Instructions Recorded Confirmed Anastrozole 1 mg ORAL DAILY 02/14/13 07/01/15 Azithromycin 250 mg ORAL DAILY 02/17/15 07/01/15 Acetaminophen with Codeine 07/01/15 07/01/15 [Tylenol with Codeine #4 Tablet] HYDROmorphone [Dilaudid] 2 mg PO Q6H PRN #10 tablet 07/01/15 Verapamil HCl [Verapamil ER] 120 mg PO TID 07/01/15 07/01/15 Cyclobenzaprine [Flexeril] 10 mg PO TID PRN #10 tablet 09/16/16 polyethylene glycoL 3350(BULK) 17 gm PO DAILY PRN #1 bottle 01/21/19 [Miralax] Albuterol Sulf [Ventolin Hfa 1 - 2 puffs INH Q4HR PRN #1 inhaler 05/16/19 Inhaler] methocarbamoL [Methocarbamol] 500 mg PO TID PRN 4 Days #10 tablet 05/16/19 Acetaminophen with Codeine 1 tab PO Q8H PRN #10 tablet 08/04/20 [Acetaminophen-Cod #3 Tablet] Acetaminophen/Cod 300/30 [Tylenol 1 each PO Q4H PRN #20 tablet 04/10/22 #3] Cefdinir 300 mg PO BID #20 cap 04/10/22 Quetiapine Fumarate [Seroquel] 50 mg PO QPM PRN #14 tablet 04/14/22 Spironolactone [Aldactone] 25 mg PO DAILY 06/26/22 06/26/22 hydrOXYzine HCL [Hydroxyzine HCl] 10 mg PO DAILY 06/26/22 06/26/22 rifAMPin [Rifampin] 300 mg PO DAILY 06/26/22 06/26/22 - Allergies Allergies/Adverse Reactions: Allergies Allergy/AdvReac Type Severity Reaction Status Date / Time hydrocodone [Hydrocodone] Allergy Unknown unknown Verified 02/23/23 18:34 oxycodone [Oxycodone] Allergy Unknown unknown Verified 02/23/23 18:34 Penicillins Allergy Unknown unknown Verified 02/23/23 18:34 adhesive Allergy Unknown Verified 02/23/23 18:34 - Social History Does the pt smoke?: No Smoking Status: Never smoker Does the pt drink ETOH?: No Does the pt have substance abuse?: No - Immunizations Immunizations are current?: Yes - POLST Patient has POLST: No PD ED PE NORMAL - Vitals Vital signs reviewed: Yes - General General: Well developed/nourished, Other (anxious, animated, pressured speech, flustered at times when she cannot specific details of some of her past medical or surgical history as well as when I interrupt in order to have her refocus on the information I need from an ED evaluation standpoint) - HEENT HEENT: Moist mucous membranes - Neck Neck: Supple, no meningeal sign - Cardiac Cardiac: RRR - Respiratory Respiratory: No respiratory distress, Clear bilaterally - Abdomen Abdomen: Soft, Non tender - Back Back: No spinal TTP - Derm Derm: Normal color, Warm and dry, No rash - Extremities Extremities: No edema, Other (c/o pain with minimal touch (for example, simply placing my hand on her left upper arm causes her pain; simlar result when I rest my hand with only the weight of my hand on her left knee, says this causes severe pain)) Results - Vitals Vitals: Oxygen O2 Source Room air - Labs Labs: Laboratory Tests 02/23/23 02/23/23 21:00 21:00 WBC 10.2 RBC 4.63 Hgb 13.1 Hct 40.1 MCV 86.6 MCH 28.3 MCHC 32.7 RDW 13.9 Plt Count 269 MPV 10.0 Neut # (Auto) 7.8 H Lymph # (Auto) 1.8 [place] # (Auto) 0.5 Eos # (Auto) 0.0 Baso # (Auto) 0.0 Absolute Nucleated RBC 0.00 Nucleated RBC % 0.0 Sodium 134 L Potassium 4.1 Chloride 97 L Carbon Dioxide 26 Anion Gap 11.0 BUN 12 Creatinine 0.4 Estimated GFR (MDRD) 153 Glucose 95 Calcium 9.0 Total Bilirubin 0.4 AST 25 ALT 20 Alkaline Phosphatase 79 Total Protein 7.9 Albumin 4.0 Globulin 3.9 Albumin/Globulin Ratio 1.0 Lipase 37 PD Medical Decision Making - ED course Complexity details: reviewed results, re-evaluated patient, considered differential, d/w patient ED course: Patient says she has hydromorphone and Tylenol #4 at home but these have been ineffective for this pain . She says she takes them so sparingly and infrequently that she is rather certain both of these medications are long . I explained that I would order dilaudid for her as well as lorazepam. Before I could get to the part about the lorazepam, she interrupts to inquire about the dose of the dilaudid. I explained I would order a total of two milligrams , one milligram with a repeat 20-30 minutes later. She began to question whether this was an adequate dose and then was asking about the dose of lorazepam, how it would be given, whether it would be effective enough, how long it would take for the medications to be brought to her, and continued to ask questions to the point that I had to walk away from her because she was not pausing enough to allow for me to answer or address any of these questions/concerns. She is given total of 2mg IM dilaudid, 1 mg per dose, and IM ativan as well. On reevaluation, she is drowsy, awakens easily to voice. She is in NAD and will be discharged, instructed to follow up with her PMD, return precautions reviewed. Departure - Departure Disposition: 01 Home, Self Care Clinical Impression: Chronic pain Qualifiers: Chronic pain type: other chronic pain Qualified Code(s): G89.29 - Other chronic pain Condition: Good Instructions: ED Chronic Pain Management, ED Acute Pain [facility] Discharge Date/Time: 02/24/23 02:48
[2023-02-23 21:20] LABS: BASOPHILS % (AUTO) 0.1 %; HCT - HEMATOCRIT 40.1 % (37.0-47.0); HGB - HEMOGLOBIN 13.1 g/dL (12.0-16.0); LYMPHOCYTES # (AUTO) 1.8 10^3/uL (1.5-3.5); LYMPHOCYTES % (AUTO) 17.6 %; MEAN CORPUSCULAR HEMOGLOBIN 28.3 pg (27.0-31.0); MEAN CORPUSCULAR HGB CONC 32.7 g/dL (32.0-36.0); MEAN CORPUSCULAR VOLUME 86.6 fL (81.0-99.0); MONOCYTES # (AUTO) 0.5 10^3/uL (0.0-1.0); MONOCYTES % (AUTO) 5.2 %; NEUTROPHILS # (AUTO) 7.8 10^3/uL (1.5-6.6); NEUTROPHILS % (AUTO) 76.9 %; PLT - PLATELET COUNT 269 10^3/uL (130-450); RED BLOOD COUNT 4.63 10^6/uL (4.20-5.40); RED CELL DISTRIBUTION WIDTH 13.9 % (12.0-15.0); WHITE BLOOD COUNT 10.2 x10^3/uL (4.8-10.8)
[2023-02-23 21:32] LABS: BILIRUBIN,TOTAL 0.4 mg/dL (0.2-1.0); CREATININE 0.4 mg/dL (0.4-1.0); POTASSIUM 4.1 mmol/L (3.5-5.0); TOTAL PROTEIN 7.9 g/dL (6.7-8.2)
[2023-02-23] MEDS ORDERED: LORazepam 2 MG/ML VIAL IM STA (21:49)
[2023-02-23] MEDS ORDERED: HYDROmorphone 1 MG/ML CARPUJECT IM STA ×2 (21:49→23:03)
[2023-02-24] MEDS ORDERED: HYDROmorphone 1 MG/ML CARPUJECT IM STA (00:04)
[2023-02-24 00:19] VITALS: BP 192/112
[2023-02-24] MEDS ORDERED: ONDANSETRON ODT 4 MG Prepack 2 TL PRN (02:38)
== END 2023-02-24 02:48 | disposition home or self-care (01) ==
LOC: ED 18:17
DX: G89.29 Other chronic pain (principal); I10 Essential (primary) hypertension; E78.00 Pure hypercholesterolemia, unspecified; J44.9 Chronic obstructive pulmonary disease, unspecified; E03.9 Hypothyroidism, unspecified; Z79.899 Other long term (current) drug therapy; Z89.611 Acquired absence of right leg above knee
CPT/HCPCS: 36415; 80053; 83690; 85025; 96372; 99283; J1170; J2060

== ENCOUNTER 2023-03-21 13:53 | Outpatient (CLI) | payer MEDICARE, BC ==
--- NOTE | 2023-03-21 20:34 | CT Report ---
PROCEDURE: CT chest without contrast INDICATIONS: PULMONARY NODULES TECHNIQUE: Noncontrast 1mm axial images were acquired from the pulmonary apices to the posterior costophrenic an gles. Axial 5 mm soft tissue kernel reconstructions were performed as well as 8 mm axial MIP and cor onal and sagittal 5 mm reformations. For radiation dose reduction, the following was used: automate d exposure control, adjustment of mA and/or kV according to patient size. COMPARISON: FINDINGS: Image quality: Excellent. Lungs and pleura: Bilateral irregular pulmonary nodules are similar the prior exam. Bilateral lower l obe tree in bud pattern present as well. Bilateral lower lobe bronchiectasis with coarse interstitial changes. Emphysematous changes stable. Mediastinum: Heart size is normal. No pericardial effusion. No large vessel abnormality. No mediastin al adenopathy by size criteria. Chest wall and lower neck: Thyroid is unremarkable. No axillary or supraclavicular adenopathy by size . Bones: No aggressive osseous abnormality. Upper Abdomen: Unremarkable. IMPRESSION: Bilateral pulmonary nodules and bibasilar tree-in-bud pattern is similar to prior exam Bibasilar bronchiectasis coarse interstitial change associated with emphysematous changes of the pulm onary parenchyma Reviewed by: Jean Marie Gill MD on 03/21/2023 7:32 PM AKDT Approved by: Jean Marie Gill MD on 03/21/2023 7:32 PM AKDT Station ID: [id number]
== END 2023-03-21 13:54 | disposition home or self-care (01) ==
LOC: DI 13:53
PROVIDERS: ATTEND Internal Medicine Pulmonary Disease
DX: J47.9 Bronchiectasis, uncomplicated (principal); R63.4 Abnormal weight loss; C55 Malignant neoplasm of uterus, part unspecified; J15.1 Pneumonia due to Pseudomonas; A31.9 Mycobacterial infection, unspecified; G89.29 Other chronic pain; R91.8 Other nonspecific abnormal finding of lung field; J43.9 Emphysema, unspecified; E87.1 Hypo-osmolality and hyponatremia; F41.1 Generalized anxiety disorder; G62.9 Polyneuropathy, unspecified
CPT/HCPCS: 36415; 80048; 81599; 82784; 83036; 84155; 84165; 84443; 86334; 87070; 87186; 87205

== ENCOUNTER 2023-03-21 13:54 | Outpatient (CLI) | payer MEDICARE, BC ==
[2023-03-21 14:54] LABS: ESTIMATED AVERAGE GLUCOSE 120 mg/dL (70-100); HEMOGLOBIN A1c% 5.8 % (4.27-6.07)
[2023-03-21 15:08] LABS: CREATININE 0.5 mg/dL (0.4-1.0); POTASSIUM 4.6 mmol/L (3.5-5.0)
[2023-03-21 15:18] LABS: THYROID STIMULATING HORMONE 2.55 uIU/mL (0.34-5.60)
[2023-03-25 14:08] LABS: A/G RATIO 1.1 (0.7-1.7); ALBUMIN 3.8 g/dL (2.9-4.4); ALPHA-1-GLOBULIN 0.3 g/dL (0.0-0.4); ALPHA-2-GLOBULIN 0.7 g/dL (0.4-1.0); BETA GLOBULIN 1.1 g/dL (0.7-1.3); GAMMA GLOBULIN 1.7 g/dL (0.4-1.8); GLOBULIN TOTAL 3.8 g/dL (2.2-3.9); IMMUNOGLOBULIN A (IGA) 488 mg/dL (64-422); IMMUNOGLOBULIN G (IGG) 1879 mg/dL (586-1602); IMMUNOGLOBULIN M (IGM) 72 mg/dL (26-217); M-SPIKE Not Observed g/dL (Not Observed); PROTEIN TOTAL 7.6 g/dL (6.0-8.5)
== END 2023-03-21 13:55 | disposition home or self-care (01) ==
LOC: LAB 13:54
PROVIDERS: ATTEND Internal Medicine Pulmonary Disease
DX: J47.9 Bronchiectasis, uncomplicated (principal); R63.4 Abnormal weight loss; C55 Malignant neoplasm of uterus, part unspecified; J15.1 Pneumonia due to Pseudomonas; G89.29 Other chronic pain; E87.1 Hypo-osmolality and hyponatremia; F41.1 Generalized anxiety disorder; A31.9 Mycobacterial infection, unspecified; G62.9 Polyneuropathy, unspecified
CPT/HCPCS: 36415; 80048; 81599; 82784; 83036; 84155; 84165; 84443; 86334; 87070; 87186; 87205

== ENCOUNTER 2023-05-14 13:17 | Outpatient (CLI) | payer MEDICARE, BC | END 2023-05-14 13:18 | disposition home or self-care (01) | LOC: LAB.R 13:17 | PROVIDERS: ATTEND Internal Medicine Pulmonary Disease | DX: J47.9 Bronchiectasis, uncomplicated (principal); C50.919 Malignant neoplasm of unspecified site of unspecified female breast; C41.9 Malignant neoplasm of bone and articular cartilage, unspecified; J15.1 Pneumonia due to Pseudomonas; R63.4 Abnormal weight loss; K21.9 Gastro-esophageal reflux disease without esophagitis; R12 Heartburn | CPT/HCPCS: 81599; 82570; 83825 ==

== ENCOUNTER 2023-06-08 12:38 | Outpatient (CLI) | payer MEDICARE, BC | END 2023-06-08 12:39 | disposition home or self-care (01) | LOC: LAB 12:38 | PROVIDERS: ATTEND Internal Medicine Pulmonary Disease | DX: J47.9 Bronchiectasis, uncomplicated (principal); R53.83 Other fatigue; M12.9 Arthropathy, unspecified; R63.4 Abnormal weight loss; C50.912 Malignant neoplasm of unspecified site of left female breast; J15.1 Pneumonia due to Pseudomonas; R12 Heartburn; D49.3 Neoplasm of unspecified behavior of breast; C41.9 Malignant neoplasm of bone and articular cartilage, unspecified; J98.8 Other specified respiratory disorders | CPT/HCPCS: 36415; 83090; 84550 ==

== ENCOUNTER 2023-07-20 18:11 | Outpatient (CLI) | payer MEDICARE, BC ==
--- NOTE | 2023-07-20 20:17 | XRAY Report ---
PROCEDURE: Chest 2 View X-Ray INDICATIONS: MYBACTERIUM AVIUM INFECTION TECHNIQUE: 2 views of the chest were acquired. COMPARISON: CT of chest dated 03/21/2023 and 04/10/2022. FINDINGS: Surgical changes and devices: None. Lungs and pleura: No pleural effusions or pneumothorax. Chronic emphysematous changes are noted in b ilateral lung jensen. Increased interstitial lung markings are noted bilaterally. No definite focal i nfiltrate. Mediastinum: Mediastinal contours appear normal. Heart size is normal. Bones and chest wall: No suspicious bony lesions. Overlying soft tissues appear unremarkable. IMPRESSION: 1. Finding is suggestive of chronic interstitial lung parenchymal disease and fibrosis. Superimposed bilateral interstitial infiltrates cannot be entirely excluded. No pleural effusion or pneumothorax. Reviewed by: Alin Henry MD on 07/20/2023 8:16 PM PDT Approved by: Alin Henry MD on 07/20/2023 8:16 PM PDT Station ID: [id number]
== END 2023-07-20 18:12 | disposition home or self-care (01) ==
LOC: DI 18:11
PROVIDERS: ATTEND Internal Medicine
DX: A31.9 Mycobacterial infection, unspecified (principal); E87.1 Hypo-osmolality and hyponatremia; I10 Essential (primary) hypertension; R73.01 Impaired fasting glucose; F41.1 Generalized anxiety disorder; E79.0 Hyperuricemia without signs of inflammatory arthritis and tophaceous disease; I47.10 Supraventricular tachycardia, unspecified
CPT/HCPCS: 36415; 80053; 80061; 83036; 83721; 84443; 84550; 85025

== ENCOUNTER 2023-07-20 18:19 | Outpatient (CLI) | payer MEDICARE, BC ==
[2023-07-20 18:52] LABS: BASOPHILS % (AUTO) 0.2 %; HCT - HEMATOCRIT 41.8 % (37.0-47.0); HGB - HEMOGLOBIN 13.7 g/dL (12.0-16.0); LYMPHOCYTES % (AUTO) 21.4 %; MEAN CORPUSCULAR HEMOGLOBIN 29.6 pg (27.0-31.0); MEAN CORPUSCULAR HGB CONC 32.8 g/dL (32.0-36.0); MEAN CORPUSCULAR VOLUME 90.3 fL (81.0-99.0); MEAN PLATELET VOLUME 9.2 fL (7.9-10.8); MONOCYTES # (AUTO) 0.5 10^3/uL (0.0-1.0); MONOCYTES % (AUTO) 5.5 %; NEUTROPHILS # (AUTO) 6.8 10^3/uL (1.5-6.6); NEUTROPHILS % (AUTO) 72.7 %; PLT - PLATELET COUNT 232 10^3/uL (130-450); RED BLOOD COUNT 4.63 10^6/uL (4.20-5.40); RED CELL DISTRIBUTION WIDTH 12.9 % (12.0-15.0); WHITE BLOOD COUNT 9.4 x10^3/uL (4.8-10.8)
[2023-07-20 19:07] LABS: ALBUMIN 4.3 g/dL (3.2-5.5); ALBUMIN/GLOBULIN RATIO 1.2 (1.0-2.2); ALKALINE PHOSPHATASE 90 IU/L (42-121); ALT ALANINE AMINOTRANSFERASE 17 IU/L (10-60); AST ASPARTATE AMINOTRANSFERASE 19 IU/L (10-42); BILIRUBIN,TOTAL 0.4 mg/dL (0.2-1.0); BUN - BLOOD UREA NITROGEN 12 mg/dL (6-20); CALCIUM 9.4 mg/dL (8.5-10.3); CARBON DIOXIDE - CO2 31 mmol/L (21-32); CHLORIDE 96 mmol/L (101-111); CHOL/HDL RATIO 3.3 (<4.4); CHOLESTEROL 255 mg/dL; CREATININE 0.6 mg/dL (0.6-1.3); GFR - MDRD 96 (>89); GLUCOSE 97 mg/dL (74-104); HDL CHOLESTEROL 78 mg/dL; LDL CHOLESTEROL,CALCULATED 164 mg/dL; LDL/HDL RATIO 2.1 (<4.4); POTASSIUM 4.6 mmol/L (3.5-4.5); SODIUM 131 mmol/L (135-145); TOTAL PROTEIN 7.9 g/dL (6.4-8.9); TRIGLYCERIDES 63 mg/dL (48-352); URIC ACID 2.6 mg/dL (2.3-6.6); VLDL CHOLESTEROL 13 mg/dL
[2023-07-20 19:21] LABS: THYROID STIMULATING HORMONE 1.71 uIU/mL (0.34-5.60)
[2023-07-20 22:03] LABS: ESTIMATED AVERAGE GLUCOSE 111 mg/dL (70-100); HEMOGLOBIN A1c% 5.5 % (4.27-6.07)
== END 2023-07-20 18:20 | disposition home or self-care (01) ==
LOC: LAB 18:19
PROVIDERS: ATTEND Internal Medicine
DX: E87.1 Hypo-osmolality and hyponatremia (principal); I10 Essential (primary) hypertension; R73.01 Impaired fasting glucose; F41.1 Generalized anxiety disorder; E79.0 Hyperuricemia without signs of inflammatory arthritis and tophaceous disease; I47.10 Supraventricular tachycardia, unspecified
CPT/HCPCS: 36415; 80053; 80061; 83036; 83721; 84443; 84550; 85025

== ENCOUNTER 2023-10-20 14:26 | Outpatient (CLI) | payer MEDICARE, BC ==
--- NOTE | 2023-10-21 09:59 | Mammography Report ---
BILATERAL DIGITAL SCREENING MAMMOGRAM 3D/2D: 10/20/2023 CLINICAL: Routine screening. Personal history of left breast cancer. Comparison is made to exams dated: 06/26/2022 mammogram - [facility], 07/09/2018 [facility] mogram - [facility], and 03/28/2016 mammogram - [facility]. Both breasts are extremely dense, which lowers the sensitivity of mammography (category d />75% gland ular tissue). There are benign calcifications in both breasts. There also are benign post operative findings in th e left breast. No significant masses, calcifications, or other findings are seen in either breast. There has been no significant interval change. IMPRESSION: BENIGN There is no mammographic evidence of malignancy. A 1 year screening mammogram is recommended. Future imaging is recommended as follows: 04/08/2024 a breast MRI. This exam was interpreted at Station ID: Unknown. NOTE: For mammograms, a report in lay terms will be sent to the patient. Approximately 15% of breast malignancies will not be visualized mammographically. In the management of a palpable breast mass, a negative mammogram must not discourage biopsy of a clinically suspicious lesion. Electronically Signed By: Shady Baker M.D. ar/:10/21/2023 09:49:03 Entry: - 10/21/2023 09:49:03 letter sent: No_Letter ACR BI-RADS Category 2: Benign Finding(s) 3342F PARENCHYMAL PATTERN: (VD) - The breast(s) demonstrate(s) extremely dense parenchyma, limiting the sen sitivity of mammography. BI-RADS CATEGORY: (2) - 2 Mammogram [id number] 1 year screening LATERALITY: (B)
== END 2023-10-20 14:27 | disposition home or self-care (01) ==
LOC: DI 14:26
PROVIDERS: ATTEND Internal Medicine Hematology & Oncology
DX: Z12.31 Encounter for screening mammogram for malignant neoplasm of breast (principal); Z85.3 Personal history of malignant neoplasm of breast; R92.343 Mammographic extreme density, bilateral breasts; R92.1 Mammographic calcification found on diagnostic imaging of breast

== ENCOUNTER 2023-12-16 13:01 | Outpatient (CLI) | payer MEDICARE, BC ==
[2023-12-16 13:30] LABS: BASOPHILS % (AUTO) 0.3 %; EOSINOPHILS % (AUTO) 0.2 %; HCT - HEMATOCRIT 42.7 % (37.0-47.0); HGB - HEMOGLOBIN 13.9 g/dL (12.0-16.0); LYMPHOCYTES % (AUTO) 32.3 %; MEAN CORPUSCULAR HEMOGLOBIN 29.6 pg (27.0-31.0); MEAN CORPUSCULAR HGB CONC 32.6 g/dL (32.0-36.0); MEAN CORPUSCULAR VOLUME 90.9 fL (81.0-99.0); MEAN PLATELET VOLUME 9.4 fL (7.9-10.8); MONOCYTES # (AUTO) 0.5 10^3/uL (0.0-1.0); NEUTROPHILS # (AUTO) 3.5 10^3/uL (1.5-6.6); PLT - PLATELET COUNT 237 10^3/uL (130-450); RED CELL DISTRIBUTION WIDTH 12.7 % (12.0-15.0)
[2023-12-16 13:45] LABS: ALBUMIN 4.2 g/dL (3.2-5.5); ALBUMIN/GLOBULIN RATIO 1.1 (1.0-2.2); BILIRUBIN,TOTAL 0.4 mg/dL (0.2-1.0); CALCIUM 9.6 mg/dL (8.5-10.3); CREATININE 0.4 mg/dL (0.6-1.3); POTASSIUM 3.9 mmol/L (3.5-4.5); URIC ACID 2.4 mg/dL (2.3-6.6)
[2023-12-16 13:57] LABS: THYROID STIMULATING HORMONE 1.14 uIU/mL (0.34-5.60)
--- NOTE | 2023-12-16 14:56 | XRAY Report ---
PROCEDURE: Hip w/Pelvis 2-3V RT INDICATIONS: RIGHT HIP PAIN TECHNIQUE: An AP view of the pelvis and a frog-leg lateral view of the hip were acquired. COMPARISON: None. FINDINGS: Bones: 3 cannulated screws transfix the right femoral neck. No evidence of hardware failure or loose fariba. No evidence of avascular necrosis. Degenerative change with moderately severe axial joint space loss. No fractures or dislocations. No suspicious bony lesions. Soft tissues: No suspicious soft tissue calcifications or masses. IMPRESSION: Expected postsurgical findings. No evidence of avascular necrosis. No acute fracture or dislocation. Degenerative arthritis with moderately severe axial joint space loss. Reviewed by: Chris Soriano MD on 12/16/2023 2:54 PM PST Approved by: Chris Soriano MD on 12/16/2023 2:54 PM PST Station ID: [id number]
--- NOTE | 2023-12-16 16:08 | XRAY Report ---
PROCEDURE: Cervical Spine 2-3V INDICATIONS: DEGENERATVICE JOINT DISEASE CERVICAL TECHNIQUE: 3 view(s) of the cervical spine were acquired. COMPARISON: X-ray cervical spine 01/01/2018 FINDINGS: Bones: No fractures or dislocations to the C7-T1 level. The lateral masses of C1 appear intact on t he odontoid view. No suspicious bony lesions. Multilevel degenerative changes are present. Severe d isc space narrowing is present C3-4, C5-6 and C6-7. There is trace anterolisthesis of C6 on C7. Multi level uncovertebral arthropathy are present. Overall appearance is progressive compared to prior exam . Soft tissues: No prevertebral soft tissue swelling. IMPRESSION: Progressive multilevel degenerative changes. Reviewed by: Madiha Huffman MD on 12/16/2023 4:07 PM PST Approved by: Madiha Huffman MD on 12/16/2023 4:07 PM PST Station ID: [id number]
--- NOTE | 2023-12-16 17:07 | CT Report ---
PROCEDURE: Chest W INDICATIONS: PULMONARY NODULE, BREAST CA CONTRAST: Opti 320- 100ml TECHNIQUE: After the administration of intravenous contrast, a CT scan of the chest was performed. Images were recorded and evaluated at appropriate window settings. Reformats: axial MIP of the chest, coronal and sagittal. For radiation dose reduction, the following was used: automated exposure control, adjustme nt of mA and/or kV according to patient size. COMPARISON: 03/21/2023 FINDINGS: Image quality: Diagnostic. Chest wall and lower neck: No thyroid nodule which requires sonographic follow up. No axillary or sup raclavicular adenopathy by size. Lungs and pleura: No consolidation. No pleural effusions. No pneumothorax. Basilar predominant tree- in-bud nodules, with associated bronchiectasis. Bronchiectasis, bronchial thickening and volume loss in the lingula and right middle lobe are similar to prior. No significant growth of pulmonary nodules . Mediastinum: Heart size is normal. No pericardial effusion. No large vessel abnormality. No mediastin al adenopathy by size criteria. Bones: No aggressive osseous abnormality. Upper Abdomen: Unremarkable. IMPRESSION: Similar findings of nontuberculous mycobacterium infection. Superimposed metastatic disease is diffic ult to exclude given extent of pulmonary nodules, although no significant growth is noted. Reviewed by: Prasanna Alaniz MD on 12/16/2023 5:05 PM PST Approved by: Prasanna Alaniz MD on 12/16/2023 5:05 PM PST Station ID: [id number]
[2023-12-16] MEDS: IOVERSOL 320 100 ML VIAL IVP ONE (17:59)
[2023-12-16 20:57] LABS: ESTIMATED AVERAGE GLUCOSE 111 mg/dL (70-100); HEMOGLOBIN A1c% 5.5 % (4.27-6.07)
== END 2023-12-16 13:02 | disposition home or self-care (01) ==
LOC: LAB 13:01
PROVIDERS: ATTEND Internal Medicine Pulmonary Disease
DX: I10 Essential (primary) hypertension (principal); R73.01 Impaired fasting glucose; R06.02 Shortness of breath; K86.89 Other specified diseases of pancreas; R41.1 Anterograde amnesia; E79.0 Hyperuricemia without signs of inflammatory arthritis and tophaceous disease; C50.919 Malignant neoplasm of unspecified site of unspecified female breast; A31.9 Mycobacterial infection, unspecified; R91.1 Solitary pulmonary nodule; D49.0 Neoplasm of unspecified behavior of digestive system; R04.2 Hemoptysis; M47.812 Spondylosis without myelopathy or radiculopathy, cervical region; M16.11 Unilateral primary osteoarthritis, right hip
CPT/HCPCS: 36415; 71260; 72040; 73502; 80053; 82150; 83036; 83690; 84443; 84550; 85025; Q9967; 86301

== ENCOUNTER 2023-12-16 14:19 | Outpatient (CLI) | payer MEDICARE, BC | END 2023-12-16 14:20 | disposition home or self-care (01) | LOC: LAB.R 14:19 | PROVIDERS: ATTEND Internal Medicine Pulmonary Disease | DX: A31.9 Mycobacterial infection, unspecified (principal); J47.9 Bronchiectasis, uncomplicated; R05.9 Cough, unspecified; M12.9 Arthropathy, unspecified | CPT/HCPCS: 81599; 87070; 87205 ==

== ENCOUNTER 2024-04-13 12:51 | Outpatient (CLI) | payer MEDICARE, BC ==
[2024-04-13 13:21] LABS: BASOPHILS # (AUTO) 0.1 10^3/uL (0.0-0.1); EOSINOPHILS # (AUTO) 0.1 10^3/uL (0.0-0.7); EOSINOPHILS % (AUTO) 2.3 %; HCT - HEMATOCRIT 41.9 % (37.0-47.0); HGB - HEMOGLOBIN 13.5 g/dL (12.0-16.0); LYMPHOCYTES # (AUTO) 1.5 10^3/uL (1.5-3.5); LYMPHOCYTES % (AUTO) 27.8 %; MEAN CORPUSCULAR HEMOGLOBIN 29.2 pg (27.0-31.0); MEAN CORPUSCULAR HGB CONC 32.2 g/dL (32.0-36.0); MEAN CORPUSCULAR VOLUME 90.7 fL (81.0-99.0); MEAN PLATELET VOLUME 9.4 fL (7.9-10.8); MONOCYTES # (AUTO) 0.3 10^3/uL (0.0-1.0); MONOCYTES % (AUTO) 6.5 %; NEUTROPHILS # (AUTO) 3.2 10^3/uL (1.5-6.6); PLT - PLATELET COUNT 208 10^3/uL (130-450); RED BLOOD COUNT 4.62 10^6/uL (4.20-5.40); RED CELL DISTRIBUTION WIDTH 13.1 % (12.0-15.0); WHITE BLOOD COUNT 5.2 x10^3/uL (4.8-10.8)
[2024-04-13 13:38] LABS: ALBUMIN/GLOBULIN RATIO 1.2 (1.0-2.2); ALKALINE PHOSPHATASE 71 IU/L (42-121); ALT ALANINE AMINOTRANSFERASE 18 IU/L (10-60); AST ASPARTATE AMINOTRANSFERASE 20 IU/L (10-42); BILIRUBIN,TOTAL 0.5 mg/dL (0.2-1.0); BUN - BLOOD UREA NITROGEN 12 mg/dL (6-20); CALCIUM 9.5 mg/dL (8.5-10.3); CARBON DIOXIDE - CO2 31 mmol/L (21-32); CHLORIDE 99 mmol/L (101-111); CHOL/HDL RATIO 3.1 (<4.4); CHOLESTEROL 252 mg/dL; CREATININE 0.5 mg/dL (0.6-1.3); GFR - MDRD 118 (>89); GLUCOSE 89 mg/dL (74-104); HDL CHOLESTEROL 82 mg/dL; LDL CHOLESTEROL,CALCULATED 161 mg/dL; POTASSIUM 4.2 mmol/L (3.5-4.5); SODIUM 134 mmol/L (135-145); TOTAL PROTEIN 7.3 g/dL (6.4-8.9); TRIGLYCERIDES 47 mg/dL (48-352); URIC ACID 2.6 mg/dL (2.3-6.6); VLDL CHOLESTEROL 9 mg/dL
[2024-04-13 13:51] LABS: THYROID STIMULATING HORMONE 1.46 uIU/mL (0.34-5.60)
[2024-04-13 14:10] LABS: ESTIMATED AVERAGE GLUCOSE 105 mg/dL (70-100); HEMOGLOBIN A1c% 5.3 % (4.27-6.07)
== END 2024-04-13 12:52 | disposition home or self-care (01) ==
LOC: LAB 12:51
PROVIDERS: ATTEND Internal Medicine
DX: R73.03 Prediabetes (principal); E79.0 Hyperuricemia without signs of inflammatory arthritis and tophaceous disease; Z85.3 Personal history of malignant neoplasm of breast; R53.83 Other fatigue; K86.9 Disease of pancreas, unspecified
CPT/HCPCS: 36415; 80053; 80061; 83036; 83721; 84443; 84550; 85025; 86301

== ENCOUNTER 2024-05-28 08:00 | Outpatient (CLI) | payer MEDICARE, BC | END 2024-05-28 23:59 | disposition home or self-care (01) | LOC: LAB.R 08:00 | PROVIDERS: ATTEND Internal Medicine Pulmonary Disease | DX: J47.9 Bronchiectasis, uncomplicated (principal); R05.9 Cough, unspecified; M12.9 Arthropathy, unspecified | CPT/HCPCS: 87070; 87181; 87205 ==

== ENCOUNTER 2024-06-07 14:13 | Outpatient (CLI) | payer MEDICARE, BC | END 2024-06-07 14:14 | disposition home or self-care (01) | LOC: LAB 14:13 | PROVIDERS: ATTEND Internal Medicine | DX: Z53.9 Procedure and treatment not carried out, unspecified reason (principal) ==

== ENCOUNTER 2024-06-09 08:00 | Outpatient (CLI) | payer MEDICARE, BC ==
[2024-06-09 21:02] LABS: BACTERIAL VAGINOSIS DNA NEGATIVE (NEGATIVE); CANDIDA GLABRATA DNA NEGATIVE (NEGATIVE); CANDIDA GROUP DNA NEGATIVE (NEGATIVE); CANDIDA KRUSEI DNA NEGATIVE (NEGATIVE); TRICHOMONAS VAGINALIS DNA NEGATIVE (NEGATIVE)
== END 2024-06-09 23:59 | disposition home or self-care (01) ==
LOC: LAB.WCP 08:00
PROVIDERS: ATTEND Physician Assistant Medical
DX: N36.9 Urethral disorder, unspecified (principal); N76.0 Acute vaginitis
CPT/HCPCS: 81514; 87086

== ENCOUNTER 2024-06-30 14:24 | Outpatient (CLI) | payer MEDICARE, BC ==
[2024-06-30 15:04] LABS: CALCIUM 9.3 mg/dL (8.5-10.3); CREATININE 0.4 mg/dL (0.6-1.3); POTASSIUM 4.6 mmol/L (3.5-4.5)
== END 2024-06-30 14:25 | disposition home or self-care (01) ==
LOC: LAB 14:24
PROVIDERS: ATTEND Internal Medicine Cardiovascular Disease
DX: I10 Essential (primary) hypertension (principal)
CPT/HCPCS: 36415; 80048